=== PATIENT | male | born 1970 | race Caucasian/White ===

== ENCOUNTER → 2020-09-03 08:52 | Outpatient (BNVA) | payer OTHER, SELFPAY | PROVIDERS: Family Provider Family Medicine; PCP Family Medicine; Visit Provider Internal Medicine Cardiovascular Disease | DX: Z01.818 Encounter for other preprocedural examination (principal); R07.9 Chest pain, unspecified; R94.39 Abnormal result of other cardiovascular function study; Z20.822 Contact with and (suspected) exposure to COVID-19 | CPT/HCPCS: 80048; 85025; 85610; 87635 ==

== ENCOUNTER 2020-09-27 05:51 | Day surgery (SDC) | payer OTHER, SELFPAY ==
--- NOTE | 2020-09-27 06:00 | XACV_ITS ---
Ht: 170 cm Wt: 92 kg BSA: 2.12 m2 Gender: Male : 1970 Any Known Allergies: No known allergies Exam Priority: Routine Procedure(s): Procedure Description: Diagnostic procedure Procedure Description: Left Heart Catheterization Procedure Description: Left ventriculography Procedure Description: Coronary Angiography Diagnostic Cath Status: Elective Diagnostic Findings * Left Main has no disease. * Circumflex has no disease. * Proximal Left Anterior Descending: luminal irregularities 20% stenosis, FABIO: 3 flow. * Mid Right Coronary Artery: luminal irregularities 20% stenosis, FABIO: 3 flow. * Posterior Descending Right: luminal irregularities 20% stenosis, FABIO: 3 flow. * Coronary angiography shows right dominance. Conclusions 1. There is luminal irregularities coronary artery disease with two vessel disease. 2. Hyperdynamic left ventricular systolic function. Ejection fraction of 75%. 3. Indication: Worsening of angina despite of optimization of medicine. Recommendations * Continue current medical management and risk factor modification. Diagnostic RX Recommendation: medical therapy and/or counseling Ventriculography Ejection Fraction: 75.0 % Pressures Phase:Rest AO : 229 / 128 ( 106 ) @ 8:57:00 AM 110 / 85 ( 98 ) @ 8:58:00 AM 126 / 74 ( 99 ) @ 9:12:00 AM 128 / 73 ( 99 ) @ 9:12:00 AM LV : 155 / 1 / 22 @ 9:11:00 AM 250 / 154 / 34 @ 9:12:00 AM 134 / -7 / 17 @ 9:12:00 AM Valves Phase:DefaultPhase AV : 6.0 @ 10:19:01 AM AV Mean Gradient: 8.0 @ 10:19:01 AM Clinical Evaluation EBL: 5mL-10mL Procedural Details Procedure Consent Obtained. Current Diagnosis : Chest Pain. Pre-Procedure Time Out. Identified patient by full name and date of as verbalized by the patient/guarantor. Does the consent match the physician's order: Yes. Accurate & Complete Informed Consent: Yes. Inpatient/Outpatient History & Physical on Chart: Yes. If H&P is completed, is and addenduem needed: No; If yes, is the addendum complete: N/A. Visualize and Verify Site with Patient/Guarantor: N/A. Relevant Radiology Images available: Yes. The risks, benefits, and alternatives of sedation and/or procedure were discussed by physician. The patient agrees to continue. Procedure started. [facility] Clinical Fraility Score: 3: Managing Well. 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 Chest Pain Symptom Assessment: Typical Angina Symptoms. Correct patient, site and procedure confirmed by cath team. Current diagnosis: Chest Pain. PERRLA. 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 Lungs clear x 5 lobes. IV Site on Arrival: 20 gauge in the left anticubital. IV Fluids: 0.9% NaCl at KVO. 0 mL infused prior to bottle labeler. Pre Procedural Pulses: bilateral dorsalis pedis was 2+. Pre Procedural Pulses: bilateral posterior tibial was 2+. Pre Procedural Pulses: right radial was 2+. Oxygen started at 2liters/min via nasal canula. right groin was prepped with chloroprep then draped in the usual sterile fashion. right radial was prepped with chloroprep then draped in the usual sterile fashion. Physician notified. Baseline sample Acquired. HR: 56 BPM. Physician arrived. Physician scrubbed in. Immediate Pre-Procedure Time Out. Correct Patient: Yes; Correct Procedure: Yes; Correct Site: Yes; Correct Patient Position: Yes; Correct Supplies: Yes; Dried Flammable Prep: Yes; Blood Products Available: N/A;. Lidocaine 1% infiltrated to the right radial. Arterial access obtained. A 5 hong konger TIG catheter in over wire. Catheter removed over the exchange wire. A 5 hong konger Jc catheter in over wire. Multiple views taken of left coronary artery. Catheter redirected to the RCA. Catheter removed over the exchange wire. A 5 hong konger JR4 catheter in over wire. Multiple views taken of right coronary artery. Catheter removed over the exchange wire. A 5 hong konger Angled Pig catheter in over wire. EDP Sample taken: LV 155/1,22; HR: 61 BPM; SpO2: 99%. LV gram performed in VALENZUELA @ 10 mL/second for a total of 30 mL. EDP Sample taken: LV 250/154,34; HR: 65 BPM; SpO2: 98%. Pullback taken: LV 134/-8,17; AO 126/74(99); Mean: 8mmHg, Peak to Peak: 6mmHg, SEP: 20sec/min; HR: 64 BPM; SpO2: 98%. Catheter removed over the exchange wire. TR band placed. Hemostasis obtained. A TR Band was successful obtaining hemostatsis at the Right Radial artery insertion site. Vital chart was stopped. Post Procedure: Pulses reassessed and unchanged. No VTE prophylaxis required. Medication's Wasted: Lidocaine 1% = 14 mL. Medication's Wasted: Heparin = 1000 units. Medication's Wasted: Nitro = 49.7 mcg. Total IV fluids: 50 mL. Contrast type used: Visipaque 320 mgI/mL, 500 mL bottle. Complications: none. Estimated blood loss: 5mL-10mL. Procedure completed. Patient transferred by wheelchair to 1st floor. Access Site Site: Right Radial artery Sheath Size: 6 Fr Hemostasis Method: TR Band Hemostasis Success: Successful Procedure Medications Start: 9:31 AM Stop: 9:31 AM Medication: Versed Amount: 1 mg Route: I.V. Start: 9:31 AM Stop: 9:31 AM Medication: Fentanyl Amount: 50 mcg Route: I.V. Start: 9:38 AM Stop: 9:38 AM Medication: Versed Amount: 1 mg Route: I.V. Start: 9:46 AM Stop: 9:46 AM Medication: Nitrogylcerin Amount: 50 mcg Start: 9:47 AM Stop: 9:47 AM Medication: Nitrogylcerin Amount: 200 mcg Route: I.A. Start: 9:49 AM Stop: 9:49 AM Medication: Fentanyl Amount: 25 mcg Route: I.V. Start: 9:49 AM Stop: 9:49 AM Medication: Heparin Amount: 5000 units Route: I.V. Start: 9:58 AM Stop: 9:58 AM Medication: Fentanyl Amount: 25 mcg Route: I.V. I, the attending physician, have reviewed and verified all procedure medications. Yes, all medications given per verbal order History/Risk Factors Hypertension: Yes Dyslipidemia: No Peripheral Arterial Disease (PAD): No Myocardial Infarction (VT): No Obesity: No Renal Disease: No Tobacco Use: Never Prior Interventions PCI: No CABG: No Valve Surgery: No Report Signatures Finalized by Salvador Stein MD on 10/10/2020 07:44 PM
[2020-09-27 08:17] VITALS: BP 119/88; PULSE 59; RESP 16; TEMP 36.7; O2SAT 98; BMI 31.8
[2020-09-27] MEDS: diphenhydrAMINE 50 mg Capsule PO (08:17)
--- NOTE | 2020-09-27 09:19 | W.PM.OPSFHP ---
Same Day Surgery H&P Indication for Procedure/HPI DATE OF PROCEDURE: September 27, 2020 CHIEF COMPLAINT/INDICATIONFOR SURGICAL PROCEDURE: Chest pain/abnormal stress test PREOP DIAGNOSIS: Chest pain despite of optimization of meds PLANNED PROCEDRUE: Operation Date: 09/27/20 07:00 Proposed Procedures p left Cardiac Catheterization 24493 r07.89(Left) - Irving Hale M.D 50-year-old male past medical history significant for family history of heart problem hyperlipidemia hypertension for worsening of chest pain underwent treadmill nuclear stress test which was equivocal. Patient was observed since he continues to do worse had few more episodes Dr. Moore referred him for left heart cath. I have detailed discussion with the patient he is nervous and think that he is under pain or heart attack. He has episodes of off-and-on chest pressure with diaphoresis. Patient has been explained all risk benefit and alternative for the procedure. He understand the risk for stroke major minor bleed urgent emergent bypass surgery hematoma bruising infection and contrast-induced nephropathy leading to transient or permanent dialysis. He would like to proceed with it. He is a good candidate for DAPT. Medications/Allergies* Home Medications Medication Instructions Recorded Confirmed Type aspirin 81 mg tablet,delayed 81 mg PO DAILY 08/02/20 09/26/20 History release lisinopril 20 2 tab PO DAILY tab 08/02/20 09/26/20 History mg-hydrochlorothiazide 12.5 mg tablet nitroglycerin 0.4 mg sublingual 0.4 mg SUBLINGUAL Q5M PRN 08/02/20 09/26/20 History tablet omeprazole 40 mg capsule,delayed 40 mg PO DAILY 08/02/20 09/26/20 History release Allergies/Adverse Reactions Allergy/AdvReac Type Severity Reaction Status Date / Time No Known Allergies Allergy Unverified 08/02/20 09:00 Pertinent History/Comorbid Conditions* Medical History (Updated 08/02/20 @ 21:56 by Bernadette Moore MD) GERD (gastroesophageal reflux disease) HTN (hypertension) Surgical History (Updated 08/02/20 @ 09:15 by Bernadette Moore MD) S/P knee surgery Social History Smoking and tobacco status: never smoked Pertinent Exam Findings alert, oriented x 3, clear to auscultation bilaterally and operative site marked Conscious Sedation Assessment PATIENT ASSESSED PRIOR TO SEDATION, WITH NO CHANGE NOTED: Yes AIRWAY EVAL/ANESTHESIA PLAN: ASA II, Risks, benefits & alternatives of sedation and/or procedure discussed and Patient agrees to continue as planned Recommendations Surgery/Procedure today Coding Level of Care Code Acute Bilingual Account Manager for Maria Del Carmen Koch
[2020-09-27 10:31] VITALS: BP 144/87; PULSE 56; RESP 28; O2SAT 98
[2020-09-27 10:45] VITALS: BP 144/87; PULSE 68; RESP 12; O2SAT 98
[2020-09-27 11:00] VITALS: BP 123/82; PULSE 57; RESP 17; O2SAT 97
[2020-09-27 11:15] VITALS: BP 114/65; PULSE 64; RESP 17; TEMP 36.7; O2SAT 97
--- NOTE | 2020-09-27 11:29 | PC.NURSE ---
3 ml air removed from TR band.
[2020-09-27 11:30] VITALS: BP 121/65; PULSE 56; RESP 15; O2SAT 97
--- NOTE | 2020-09-27 12:00 | PC.NURSE ---
4 ml air taken out of TR band.
--- NOTE | 2020-09-27 12:48 | PC.NURSE ---
4 ml air removed from TR band.
--- NOTE | 2020-09-27 13:58 | PC.NURSE ---
TR band removed. no bleeding noted. Will continue to monitor
== END 2020-09-27 14:47 | disposition home or self-care (01) ==
LOC: CCL 05:52 → ICU 10:33
PROVIDERS: PCP Family Medicine; Visit Provider Internal Medicine Cardiovascular Disease
DX: I25.10 Atherosclerotic heart disease of native coronary artery without angina pectoris (principal); R07.89 Other chest pain; E78.5 Hyperlipidemia, unspecified; I10 Essential (primary) hypertension; Z82.49 Family history of ischemic heart disease and other diseases of the circulatory system; K21.9 Gastro-esophageal reflux disease without esophagitis
CPT/HCPCS: 36415; 93452; C1769; C1887; C1894; J1644; J2250; J3010; J3490; J7030; Q0163; Q9967

== ENCOUNTER 2020-09-28 07:38 | Outpatient (CLI) | payer OTHER, SELFPAY ==
--- NOTE | 2020-09-28 08:00 | USCV_ITS ---
Jimmie Rios Age: 50 Gender: M : 1970 Exam Date: 09/28/2020 07:54 Ordering Phys: Bernadette Moore MD ([email or web address]) Technologist: Carlotta Haney Exam Location: [facility] Indication: Chest pain BP: 135 / 77 HR: 56 Rhythm: Sinus Technical Quality: Good MEASUREMENTS (Male / Female) Normal Values 2D ECHO LV Diastolic Diameter PLAX 4.6 cm 4.2 - 5.9 / 3.9 - 5.3 cm LV Systolic Diameter PLAX 3.0 cm IVS Diastolic Thickness 0.7 cm 0.6 - 1.0 / 0.6 - 0.9 cm IVS Systolic Thickness 1.4 cm LVPW Diastolic Thickness 1.1 cm 0.6 - 1.0 / 0.6 - 0.9 cm LVPW Systolic Thickness 1.6 cm LVOT Diameter 2.1 cm LV Ejection Fraction 2D Teich 63.7 % LV Ejection Fraction MOD 2C 56.2 % LV Ejection Fraction 2C AL 56.2 % LA Diameter 3.6 cm LA Width 3.3 cm LA Height 5.1 cm RA Width 2.9 cm RA Height 4.4 cm Aorta at Sinotubular Diameter 2.9 cm M-MODE LV Diastolic Diameter MM 5.4 cm 4.2 - 5.9 / 3.9 - 5.3 cm LV Systolic Diameter MM 3.4 cm LV Ejection Fraction MM Teich 67.8 % IVS Diastolic Thickness MM 0.9 cm 0.6 - 1.0 / 0.6 - 0.9 cm IVS Systolic Thickness MM 1.4 cm LVPW Diastolic Thickness MM 0.9 cm 0.6 - 1.0 / 0.6 - 0.9 cm LVPW Systolic Thickness MM 1.4 cm Aortic Annulus Diameter 2.7 cm LA Ao Ratio MM 1.3 MV E Point Septal Separation 0.3 cm DOPPLER AV Peak Velocity 127.0 cm/s LVOT Peak Velocity 119.0 cm/s AV Area Cont Eq vti 2.8 cm squared AV Area Cont Eq pk 3.3 cm squared MV Peak Velocity 110.0 cm/s MV Area PHT 3.2 cm squared Mitral E to A Ratio 1.5 MV E' Velocity 60.0 cm/s Mitral E to MV E' Ratio 9.9 Mitral E to LV E' Lateral Ratio 8.8 Mitral E to LV E' Septal Ratio 11.3 TR Peak Velocity 73.3 cm/s TR Peak Gradient 2.1 mmHg TR Mean Velocity 46.4 cm/s TR Mean Gradient 1.1 mmHg TR Velocity Time Integral 13.4 cm Right Atrial Pressure 3.0 mmHg Pulmonary Artery Systolic Pressu 5.1 mmHg PV Peak Velocity 102.0 cm/s RV Acceleration Time 0.2 s RV Ejection Time 0.3 s RV AcT/ET 0.6 FINDINGS Left Ventricle Normal left ventricular size, systolic function and wall thickness, with no regional wall motion abnormalities. Left ventricular ejection fraction is estimated at 65-70 %. Normal diastolic function. Right Ventricle Normal right ventricular size and systolic function. RVSP could not be calculated due to incomplete tricuspid regurgitation velocity profile. Right Atrium Normal right atrial size. Left Atrium Normal left atrial size. Mitral Valve Structurally normal mitral valve. No mitral valve stenosis. No mitral valve regurgitation. Aortic Valve Structurally normal trileaflet aortic valve. No aortic valve stenosis. No aortic valve regurgitation. Tricuspid Valve Structurally normal tricuspid valve. No tricuspid valve stenosis. Trace tricuspid valve regurgitation. Pulmonic Valve Structurally normal pulmonic valve. Trace pulmonary valve regurgitation. Pericardium No pericardial effusion. Aorta Normal size aortic root and proximal ascending aorta. CONCLUSIONS 1. Normal left ventricular size, systolic function and wall thickness, with no regional wall motion abnormalities. Left ventricular ejection fraction is estimated at 65-70 %. Normal diastolic function. 2. Normal right ventricular size and systolic function. 3. No significant valvular abnormality. 4. No prior similar studies to compare. Bernadette Moore MD (Electronically Signed) Final Date: 30 September 2020 08:24 S
== END 2020-09-28 07:39 | disposition home or self-care (01) ==
LOC: US 07:39
PROVIDERS: PCP Family Medicine; Visit Provider Internal Medicine Cardiovascular Disease
DX: R07.9 Chest pain, unspecified (principal)
CPT/HCPCS: 93306

== ENCOUNTER → 2020-10-10 09:12 | Outpatient (BNVA) | payer OTHER, SELFPAY | PROVIDERS: PCP Family Medicine; Visit Provider Nurse Practitioner Family | DX: I10 Essential (primary) hypertension (principal); Z09 Encounter for follow-up examination after completed treatment for conditions other than malignant neoplasm | CPT/HCPCS: 80048 ==

== ENCOUNTER → 2020-12-21 09:53 | Outpatient (BNVA) | payer OTHER, SELFPAY | PROVIDERS: PCP Family Medicine; Visit Provider Urology | DX: N43.40 Spermatocele of epididymis, unspecified (principal) | CPT/HCPCS: 81003 ==

== ENCOUNTER → 2021-03-18 08:18 | Outpatient (BNVA) | payer OTHER, SELFPAY | PROVIDERS: PCP Family Medicine; Referring Provider Anesthesiology Pain Medicine; Visit Provider Orthopaedic Surgery | DX: M25.521 Pain in right elbow (principal) | CPT/HCPCS: 73080 ==

== ENCOUNTER 2021-03-21 09:30 | Outpatient (RCR) | payer OTHER, SELFPAY | END 2021-03-29 23:59 | disposition home or self-care (01) | LOC: SOT 09:30 | PROVIDERS: PCP Family Medicine; Referring Provider Orthopaedic Surgery; Visit Provider Orthopaedic Surgery | DX: M77.01 Medial epicondylitis, right elbow (principal) | CPT/HCPCS: 97032; 97110; 97140; 97165 ==

== ENCOUNTER 2021-04-19 10:48 | Outpatient (CLI) | payer OTHER, SELFPAY ==
[2021-04-19 10:56] VITALS: BP 134/93; PULSE 74; RESP 17; TEMP 36; O2SAT 97; BMI 32.8
[2021-04-19 11:09] VITALS: BP 125/82; PULSE 78; RESP 18; TEMP 34.7; O2SAT 98
[2021-04-19 11:44] VITALS: BP 131/79; PULSE 65; RESP 16; TEMP 34.7; O2SAT 99
== END 2021-04-19 12:46 | disposition home or self-care (01) ==
LOC: OPS 10:49
PROVIDERS: PCP Family Medicine; Visit Provider Clinical Nurse Specialist Adult Health
DX: U07.1 COVID-19 (principal)
CPT/HCPCS: 96365

== ENCOUNTER → 2021-11-06 11:07 | Outpatient (BNVA) | payer OTHER, SELFPAY | PROVIDERS: PCP Family Medicine; Visit Provider Family Medicine | DX: I10 Essential (primary) hypertension (principal); E78.00 Pure hypercholesterolemia, unspecified; R53.83 Other fatigue; G43.009 Migraine without aura, not intractable, without status migrainosus; G56.11 Other lesions of median nerve, right upper limb; N50.89 Other specified disorders of the male genital organs | CPT/HCPCS: 80053; 80061; 82040; 84270; 84403 ==

== ENCOUNTER 2021-12-22 05:28 | Emergency (ER) | payer OTHER, SELFPAY ==
[2021-12-22 05:29] VITALS: BP 150/91; PULSE 65; RESP 18; TEMP 36.8; O2SAT 99; BMI 29.0
[2021-12-22 05:40] VITALS: BP 138/85; PULSE 59; RESP 16; TEMP 36.7; O2SAT 98
--- NOTE | 2021-12-22 05:43 | XRR_ITS ---
PROCEDURE INFORMATION: Exam: XR Chest Exam date and time: 12/22/2021 5:47 AM Age: 51 years old Clinical indication: Chest wall pain; Additional info: Cp TECHNIQUE: Imaging protocol: Radiologic exam of the chest. Views: 1 view. COMPARISON: CT chest w con* [id number] 09/28/2018 10:33 AM FINDINGS: Lungs: No CHF/pulmonary edema. Visible lungs appear essentially clear. Pleural spaces: No visible pneumothorax. No definite pleural fluid. Heart/Mediastinum: Heart size is within normal limits. Bones/joints: Old fracture of the mid to distal right clavicle. XR/XR chest 1V portable [id number] IMPRESSION: 1. No definite CHF or pneumonia. 2. Other findings discussed above.
--- NOTE | 2021-12-22 05:43 | ECG_ITS ---
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
[2021-12-22 06:08] LABS: Basophils % 0.5 %; Eosinophils # 0.1 10^3/uL (0.0-0.8); Eosinophils % 2.4 %; Hemoglobin 14.2 g/dL (11.7-16.6); Lymphocytes # 1.9 10^3/uL (0.8-4.8); Lymphocytes % 32.3 %; Mean Corpuscular Volume 84.6 fl (80-94); Mean Platelet Volume 10.6 fL (7.4-10.4); Monocytes # 0.5 10^3/uL (0.2-0.9); Neutrophils % 55.6 %; Nucleated Red Blood Cells % 0 %; Platelet Count 242 10^3/cmm (130-400); Red Blood Count 5.08 10^6/uL (4.1-5.3); Red Cell Distribution Width 12.8 % (12.1-15.1); White Blood Count 5.8 10^3/uL (4.0-10.0)
--- NOTE | 2021-12-22 06:12 | W.ED.GENADLT ---
HPI - General Adult General: Chief complaint: General Medical Stated complaint: throat pain Time Seen by Provider: 12/22/21 06:01 Source: patient Mode of arrival: ambulatory Limitations: no limitations History of Present Illness: This patient makes his way to the emergency department today because of concerns about progressive neck discomfort with radiation to his chest and into his upper back. He states he is anxious about his symptoms. He states the symptoms began rather mildly approximately a year ago and over that period of time since initiation of symptoms he is noted more progressive symptoms. There initially seem to be located mostly in his neck and now are radiating into his chest left shoulder and left upper back. He has talked to his primary care doctor about the symptoms and a CT scan was ordered but its been a while to get that study done because of delay in insurance coverage. He states that he talk to his doctor on Thursday instead he was having more progressive symptoms as described above and was recommended that he should come to the emergency department. He finally made his way to the emergency department today. He states he was awakened approximately 3 AM with symptoms as described above. He relates that he does take omeprazole for gastroesophageal reflux and had an endoscopy approximately 3 years ago. He states he feels like he has a lump in his throat at times and clears his throat a lot. He thought he might have seasonal allergies but he is unsure of that now. He is taken some allergy medicine in the past but has not done so for several months. He is a non-smoker. He used to chew tobacco but quit that practice several years ago. He states that if he walks briskly he might get breathless a little bit but denies any overt chest pain. He has a history of hypertension. He does not drink alcohol. He is never had difficulty swallowing his food or liquids. He denies cough or fever. Denies weight loss. He does not vomit with the symptoms. Quality: burning and dull Associated symptoms: Reports chest pain; Deny dyspnea, headache(s), nausea, rash, palpitations, syncope or vomiting Review of Systems Const: Denies: fever(s) Eyes: Denies: change in vision ENMT: Reports: throat pain and hoarseness; Denies: nasal discharge, nasal congestion, post nasal drip or sinus pain Card: Reports: chest pain and dyspnea on exertion; Denies: palpitations, irregular heart rhythm, syncope or pre-syncope Resp: Denies: dyspnea, productive cough, non-productive cough, wheezing or stridor GI: Denies: abdominal pain, nausea, vomiting, hematemesis, diarrhea or change in bowel habits : Denies: flank pain, difficulty urinating, dysuria or urinary frequency Musc: Denies: extremity pain or extremity swelling Skin/Breast: Denies: rash or pruritus Neuro: Denies: headache(s), numbness in extremities, weakness in extremities, dizziness, vertigo or Slurred speech present Psych: Denies: depression or panic attacks Endo: Denies: polyuria or polydipsia PFSH ED PFSH: Medical History GERD (gastroesophageal reflux disease) High cholesterol HTN (hypertension) Hx of coronary angiogram Sperm granuloma Surgical History History of carpal tunnel release S/P knee surgery Family History Mother , at age 51 LUNG,LIVER AND BONE CANCER Cancer Father , AT AGE 72 LUNG CANCER Hypertension Cancer Social History Smoking and tobacco status: never smoked Alcohol intake: never Marital status: Current occupational status: employed Physical Exam Narrative: EXAM NARRATIVE: Patient is alert awake cooperative. He answers questions in a normal voice. Const: COMMON NORMALS: no acute distress, average body habitus and patient oriented x3 GENERAL APPEARANCE: cooperative and comfortable ORIENTATION/CONSCIOUSNESS: Yes awake HENMT: COMMON NORMALS: normocephalic, atraumatic, Normal nasal mucous membranes and turbinates present, moist oral mucous membranes and oropharynx normal HEAD & SCALP: normocephalic and atraumatic FACE & SINUS: normal facial exam NOSE: Normal nasal mucous membranes and turbinates present Eye: COMMON NORMALS: Equal, round and reactive pupils present, EOMs intact bilaterally, conjunctivae normal and no scleral icterus CONJUNCTIVA: Yes conjunctivae normal PUPIL: Yes Equal, round and reactive pupils present Neck/C-Spine: COMMON NORMALS: full ROM, no lymphadenopathy, supple and Thyroid normal THYROID: Thyroid normal CERVICAL SPINE: Yes cervical ROM normal, No Cervical spine tenderness, No Paracervical muscle tenderness and No Trapezius muscle tenderness Lymph: LYMPHATIC: no lymphadenopathy noted Chest: COMMONS NORMALS: normal inspection of the chest and normal palpation of entire chest wall Resp: COMMON NORMALS: normal respiratory effort, No use of accessory muscles and clear to auscultation bilaterally AUSCULTATION: clear to auscultation bilaterally Cardio: COMMON NORMALS: regular rate, regular rhythm, No murmurs present (Cardio) and Peripheral pulses 2+ throughout RATE: regular rate RHYTHM: regular rhythm PERIPHERAL PULSES: Peripheral pulses 2+ throughout GI: COMMON NORMALS: Normal to inspection, nondistended, normoactive bowel sounds present, Soft to palpation and No hepatosplenomegaly present AUSCULTATION: Yes Hyperactive bowel sounds present (Epigastric) PALPATION: Yes Soft to palpation, No Tenderness to palpation present (GI), No Guarding due to palpation present (GI) and Yes No hepatosplenomegaly present : COMMON NORMALS: Yes no CVA tenderness BLADDER/KIDNEY EXAM: Yes no CVA tenderness Back/Pelvis: COMMON NORMALS: no CVA tenderness, thoracic and lumbar spine normal to inspection, no thoracic nor lumbar tenderness and thoraco-lumbar ROM normal Extremity: COMMON NORMALS: normal to inspection, full ROM, capillary refill normal, no calf tenderness and no pedal edema Neuro: COMMON NORMALS: patient oriented x3, moves all extremities, no focal motor deficits, no sensory deficits noted and deep tendon reflexes 2+ bilaterally CRANIAL NERVES: Yes CN normal except as noted Psych: COMMON NORMALS: mental status grossly normal, cooperative, normal affect and speech normal SPEECH: Yes normal speech Skin: COMMON NORMALS: no rashes or lesions noted, no wounds, turgor normal and no jaundice GENERAL SKIN EXAM: no rashes or lesions noted and turgor normal Course Vital Signs: Vital signs: Vital Signs Temperature 98.0 F 12/22/21 05:40 Pulse Rate 59 L 12/22/21 05:40 Respiratory Rate 16 12/22/21 05:40 Blood Pressure 138/85 12/22/21 05:40 Pulse Oximetry 98 12/22/21 05:40 Oxygen Delivery Me thod 12/22/21 05:40 [facility] - General Adult Medical Decision Making Gentleman with chronic and progressive symptoms of throat discomfort that is now progressed and there is some chest and neck and shoulder discomfort. We will do due diligence and ensure there are no active ACS etc. at this time given his awakening at 3 AM with symptoms and proceed with advanced imaging to further risk stratify at this time. CT scan head and neck were unrevealing for anything significant pathology at this time. EKG and troponin biomarkers unremarkable as well and reassuring given the duration of symptoms. Is also had an angiogram in the last year that showed very minimal coronary artery disease. He has certain symptoms may be related to acid reflux or even postnasal drainage given his work-up today. He is not currently on a nasal steroid and is not on a H2 cricket so we will make those additions to his therapy temporarily in anticipation of his primary care doctor continue work-up which may include ENT or GI referral. Patient's stable and comfortable with the plan of care with return precautions discussed. Medical Records I reviewed the patient's medical records. Lab Data I reviewed the patient's lab results. : 12/22/21 06:00 12/22/21 06:00 Radiology Impressions Chest X-Ray 12/22/21 05:43 IMPRESSION: 1. No definite CHF or pneumonia. 2. Other findings discussed above. Chest CT 12/22/21 06:21 IMPRESSION: 1. No lung nodules or mediastinal lymphadenopathy. 2. Worsened moderate to severe coronary arterial atherosclerotic vascular calcifications, as noted above. Neck CT 12/22/21 06:21 IMPRESSION: No acute findings. Laboratory Results WBC 5.8 10^3/uL (4.0-10.0) 12/22/21 06:00 RBC 5.08 10^6/uL (4.1-5.3) 12/22/21 06:00 Hgb 14.2 g/dL (11.7-16.6) 12/22/21 06:00 Hct 43.0 % (42.0-52.0) 12/22/21 06:00 MCV 84.6 fl (80-94) 12/22/21 06:00 MCH 28.0 pg (28.0-34.0) 12/22/21 06:00 MCHC 33.0 g/dL (30.0-36.0) 12/22/21 06:00 RDW 12.8 % (12.1-15.1) 12/22/21 06:00 Plt Count 242 10^3/cmm (130-400) 12/22/21 06:00 MPV 10.6 fL (7.4-10.4) H 12/22/21 06:00 Neut % (Auto) 55.6 % 12/22/21 06:00 Lymph % (Auto) 32.3 % 12/22/21 06:00 Boundary % (Auto) 9.0 % 12/22/21 06:00 Eos % (Auto) 2.4 % 12/22/21 06:00 Baso % (Auto) 0.5 % 12/22/21 06:00 Neut # (Auto) 3.20 10^3/uL (1.8-7.7) 12/22/21 06:00 Lymph # (Auto) 1.9 10^3/uL (0.8-4.8) 12/22/21 06:00 Boundary # (Auto) 0.5 10^3/uL (0.2-0.9) 12/22/21 06:00 Eos # (Auto) 0.1 10^3/uL (0.0-0.8) 12/22/21 06:00 Baso # (Auto) 0.0 10^3/uL (0.0-0.1) 12/22/21 06:00 Nucleated RBC % (auto) 0 % 12/22/21 06:00 Nucleated RBCs # 0.0 /100WBC 12/22/21 06:00 Sodium 138 mmol/L (136-145) 12/22/21 06:00 Potassium 3.9 mmol/L (3.5-5.1) 12/22/21 06:00 Chloride 99 mmol/L (98-107) 12/22/21 06:00 Carbon Dioxide 27 mmol/L (22-29) 12/22/21 06:00 Anion Gap 15.9 (5-19) 12/22/21 06:00 BUN 13 mg/dL (6-20) 12/22/21 06:00 Creatinine 0.8 mg/dL (0.7-1.2) 12/22/21 06:00 GFR Calculation 101.1 mL/min (90-130) 12/22/21 06:00 Glucose 114 mg/dL (65-115) 12/22/21 06:00 Calculated Osmolality 287 mOsm/kg (285-295) 12/22/21 06:00 Calcium 9.2 mg/dL (8.5-10.5) 12/22/21 06:00 Total Bilirubin 0.3 mg/dL (0.15-1.2) 12/22/21 06:00 AST 18 U/L (0-40) 12/22/21 06:00 ALT 20 U/L (0-41) 12/22/21 06:00 Alkaline Phosphatase 46 U/L (40-130) 12/22/21 06:00 Troponin T Baseline 6 ng/L (0-15) 12/22/21 06:00 Total Protein 6.8 g/dL (6.6-8.7) 12/22/21 06:00 Albumin 4.4 g/dL (3.5-5.2) 12/22/21 06:00 Globulin 2.4 g/dL (1.3-4.6) 12/22/21 06:00 Lipase 31 U/L (13-60) 12/22/21 06:00 EKG Data EKG 1: I personally reviewed and interpreted this EKG as follows: Interpretation: Resting EKG reveals a ventricular rate of 56 bpm consistent with sinus bradycardia. Normal intervals, normal axis, normal QTc interval. No acute ST-T wave changes noted at this time. Computer generated interpretation: Chest X-Ray 12/22/21 05:43 IMPRESSION: 1. No definite CHF or pneumonia. 2. Other findings discussed above. Chest CT 12/22/21 06:21 IMPRESSION: 1. No lung nodules or mediastinal lymphadenopathy. 2. Worsened moderate to severe coronary arterial atherosclerotic vascular calcifications, as noted above. Neck CT 12/22/21 06:21 IMPRESSION: No acute findings. EKG 2: I personally reviewed and interpreted this EKG as follows: Interpretation: Second EKG this visit reveals a sinus bradycardia with a ventricular rate of 59 bpm. Normal intervals, normal axis. No acute ST-T wave changes noted. Computer generated interpretation: Chest X-Ray 12/22/21 05:43 IMPRESSION: 1. No definite CHF or pneumonia. 2. Other findings discussed above. Chest CT 12/22/21 06:21 IMPRESSION: 1. No lung nodules or mediastinal lymphadenopathy. 2. Worsened moderate to severe coronary arterial atherosclerotic vascular calcifications, as noted above. Neck CT 12/22/21 06:21 IMPRESSION: No acute findings. Discharge Plan Discharge Patient Disposition: Home Clinical Impression: Dysphagia, Odynophagia Condition: Stable Prescriptions: New Pepcid 40 mg tablet 40 mg PO BEDTIME Qty: 30 0RF Nasacort Allergy 55 mcg aerosol,spray 1 spray intranasal DAILY Qty: 16.9 0RF Rx Instructions: administer into each nostril No Action aspirin [Adult Low Dose Aspirin] 81 mg tablet,delayed release (DR/EC) 81 mg PO DAILY omeprazole 40 mg capsule,delayed release(DR/EC) 40 mg PO DAILY nitroglycerin [Nitrostat] 0.4 mg tablet, sublingual 0.4 mg sublingual Q5M PRN (Reason: Chest Pain) Rx Instructions: do not exceed 3 doses per episode lisinopril-hydrochlorothiazide 20-12.5 mg tablet 2 tab PO DAILY atorvastatin 10 mg tablet 10 mg PO DAILY naproxen sodium [Aleve] 220 mg tablet 220 mg PO BID PRN bupropion HCl 150 mg tablet extended release 24 hr 150 mg PO QAM trazodone PO ibuprofen 800 mg tablet 800 mg PO Q8H PRN (Reason: headache or dizziness onset) Qty: 20 0RF amoxicillin-pot clavulanate 875-125 mg tablet 1 tab PO BID Qty: 28 0RF Discharge Orders: Discharge ED (Routine); Ordered 12/22/21 Ordered By: Romario Stephens Referrals: Taran Hunter DO [Primary Care Provider] - 4-7 days (continuation of work up-see ED note) Discharge Diet: Usual diet Discharge Activity: Resume usual activity Patient Instructions: Opioid Safety, Pain Management Activity Restrictions/Additional Instructions: As we discussed while you were in the emergency department today. No evidence of serious etiology to your symptoms was found with CT scanning other work-up however additional evaluation is important to establish a firm diagnosis. Call your primary care doctor this coming week to discuss additional work-up. We have provided prescriptions for some medications to attempt to treat your symptoms while your work-up is ongoing. If you have any additional, worsening or other concerning symptoms return to the emergency department at any time otherwise follow-up with your regular doctor. Coding Level of Care Code ED [facility] Specialist for [facility] Del [facility] Koch Exam Comprehensive
[2021-12-22] MEDS: lidocaine 2% viscous 15 ML, aluminum-mag hydrox-simethicon 30 ML, sucralfate oral liq 1 GM PO (06:16)
--- NOTE | 2021-12-22 06:21 | CTR_ITS ---
PROCEDURE INFORMATION: Exam: CT Neck With Contrast Exam date and time: 12/22/2021 6:50 AM Age: 51 years old Clinical indication: Other: Feels like a lump in throat; Additional info: Neck, chest pain TECHNIQUE: Imaging protocol: Computed tomography of the neck with contrast. Radiation optimization: All CT scans at this facility use at least one of these dose optimization techniques: automated exposure control; mA and/or kV adjustment per patient size (includes targeted exams where dose is matched to clinical indication); or iterative reconstruction. Contrast material: OMNI 350; Contrast volume: 50 ml; Contrast route: INTRAVENOUS (IV); COMPARISON: CT chest w con* [id number] 12/22/2021 6:45 AM RADIATION DOSE METRICS: Total DLP (mGy-cm): 296.95 FINDINGS: Paranasal sinuses: Visualized paranasal sinuses appear unremarkable. Pharynx: No significant tonsillar enlargement. Unremarkable. Larynx: Normal epiglottis. Prevertebral and retropharyngeal spaces: Unremarkable. Salivary glands: Glands are normal in size. Thyroid: Normal. No enlarged or calcified nodules. Lymph nodes: No neck lymphadenopathy. Trachea: Visualized trachea is unremarkable. Lungs: Normal as visualized. Bones/joints: No acute abnormalities seen. Multiple missing teeth are seen. Multiple radiopaque dental restorations are seen. Vasculature: No acute findings. Soft tissues: No significant soft tissue swelling. No fluid collections to suggest abscess. No radiopaque foreign body. CT/CT neck w con* [id number] IMPRESSION: No acute findings.
--- NOTE | 2021-12-22 06:21 | CTR_ITS ---
PROCEDURE INFORMATION: Exam: CT Chest With Contrast; Diagnostic Exam date and time: 12/22/2021 6:45 AM Age: 51 years old Clinical indication: Pain; Chest pressure; Additional info: Neck, chest pain TECHNIQUE: Imaging protocol: Diagnostic computed tomography of the chest with contrast. Radiation optimization: All CT scans at this facility use at least one of these dose optimization techniques: automated exposure control; mA and/or kV adjustment per patient size (includes targeted exams where dose is matched to clinical indication); or iterative reconstruction. Contrast material: OMNI 350; Contrast volume: 75 ml; Contrast route: INTRAVENOUS (IV); COMPARISON: CT chest w con* [id number] 09/28/2018 10:33 AM RADIATION DOSE METRICS: Total DLP (mGy-cm): 499.57 FINDINGS: Trachea: The trachea is midline. Lungs: There are no lung nodules, interstitial lung disease, or consolidation. Pleural spaces: No pneumothorax. No pleural effusion. Heart: The heart size is normal. No pericardial effusion. Worsened moderate to severe left anterior descending coronary arterial atherosclerotic vascular calcifications are seen. Worsened moderate circumflex and right coronary arterial atherosclerotic vascular calcifications are seen. Lymph nodes: No enlarged lymph nodes. Vasculature: Unremarkable. No aortic aneurysm. Bones/joints: No acute osseous abnormality seen. Soft tissues: Unremarkable. Other findings: Unchanged simple left kidney mid zone 2.2 x 1.8 cm cyst is seen. Mild fatty infiltration of the liver. CT/CT chest w con* [id number] IMPRESSION: 1. No lung nodules or mediastinal lymphadenopathy. 2. Worsened moderate to severe coronary arterial atherosclerotic vascular calcifications, as noted above.
[2021-12-22 06:41] LABS: Alanine Aminotransferase 20 U/L (0-41); Albumin Level 4.4 g/dL (3.5-5.2); Alkaline Phosphatase 46 U/L (40-130); Blood Urea Nitrogen 13 mg/dL (6-20); Calcium 9.2 mg/dL (8.5-10.5); Carbon Dioxide 27 mmol/L (22-29); Chloride 99 mmol/L (98-107); Globulin 2.4 g/dL (1.3-4.6); Glomerular Filtration Rate 101.1 mL/min (90-130); Glucose 114 mg/dL (65-115); Lipase 31 U/L (13-60); Osmolality Calculated 287 mOsm/kg (285-295); Sodium 138 mmol/L (136-145); Total Bilirubin 0.3 mg/dL (0.15-1.2); Total Protein 6.8 g/dL (6.6-8.7)
[2021-12-22 06:42] LABS: Troponin(5th) Baseline 6 ng/L (0-15)
[2021-12-22 06:57] LABS: Anion Gap 15.9 (5-19); Potassium 3.9 mmol/L (3.5-5.1)
[2021-12-22] MEDS: iohexol 350 mg/mL 100 mL Btl IV ×2 (06:57→06:58)
[2021-12-22 06:58] LABS: Aspartate Amino Transferase 18 U/L (0-40)
[2021-12-22 07:37] VITALS: BP 138/85; PULSE 60; RESP 14; O2SAT 98
--- NOTE | 2021-12-22 07:43 | ECG_ITS ---
[facility] Test Date: 2021-12-22 Pat Name: Jimmie Rios Department: Room: Gender: Male Family Caseworker: : 1970 Requested By: Rosa Nguyen Order Number: [id number] Reading MD: Measurements Intervals [place] Rate: 59 P: 28 [place]: 167 QRS: 30 QRSD: 89 T: 41 QT: 453 QTc: 452 Interpretive Statements SINUS BRADYCARDIA WITH SINUS ARRHYTHMIA Compared to ECG 12/22/2021 05:40:20 Prolonged QT interval no longer present [email or web address]
[2021-12-22 08:07] VITALS: BP 138/85; PULSE 60; RESP 14; O2SAT 98
[2021-12-22 08:10] LABS: Troponin 5 2HR Delta 0 ABS# (0-10)
== END 2021-12-22 08:08 | disposition home or self-care (01) ==
PROVIDERS: Emergency Medicine; Emergency Provider Emergency Medicine; PCP Family Medicine
DX: R13.10 Dysphagia, unspecified (principal); I10 Essential (primary) hypertension; E78.00 Pure hypercholesterolemia, unspecified; Z79.82 Long term (current) use of aspirin
CPT/HCPCS: 36415; 70491; 71045; 71260; 80053; 83690; 84484; 85025; 93005; 99285; Q9967

== ENCOUNTER 2022-02-23 08:16 | Emergency (ER) | payer OTHER, SELFPAY ==
[2022-02-23 08:36] VITALS: BP 158/104; PULSE 72; RESP 18; TEMP 36.7; O2SAT 98; BMI 29.0
[2022-02-23] MEDS: dexamethasone 10 mg/mL INJ IM (08:48)
[2022-02-23] MEDS: ketorolac 60 mg/2 mL INJ IM (08:48)
[2022-02-23] MEDS: orphenadrine 30 mg/mL Inj 2 mL 60 MG IM (08:48)
--- NOTE | 2022-02-23 08:57 | W.ED.NECK ---
HPI - Neck Pain/Injury General: Chief Complaint: Neck Pain/Injury Stated Complaint: neck is in pain Time Seen by Provider: 02/23/22 08:19 Source: patient Mode of arrival: ambulatory History of Present Illness: 51-year-old male presents emergency room complaining neck pain. He states it began when he hit his head on a door about 2 weeks ago he was seen in the emergency room CT of the head and neck were done there is no significant finding he states he still has neck pain since then he has a little bit of discomfort rating into his shoulders and the upper arms no weakness. No difficulty walking. No nausea or vomiting no loss of consciousness MD complaint: neck pain and neck injury Onset (ago): week(s) (2) Place: work Radiation: right shoulder, left shoulder, right upper extremity and left upper extremity Severity: moderate Quality: aching and spasming Duration: intermittent Relieving factors: none Exacerbating factors: none Context: direct blow Associated symptoms: Denies dysphagia, difficulty walking, dizziness, fevers/chills, headache(s), nausea, swollen glands, tingling or weakness Treatments prior to arrival: none Review of Systems Const: Denies: fever(s), chills, body aches, change in appetite, fatigue or malaise ENMT: Denies: throat pain, ear or mastoid pain, nasal discharge or nasal congestion Card: Denies: chest pain, edema, dyspnea on exertion or orthopnea Resp: Denies: dyspnea, productive cough or non-productive cough GI: Denies: abdominal pain, nausea, vomiting, hematemesis or dysphagia : Denies: flank pain, dysuria, urinary frequency or urinary urgency Musc: Reports: neck pain Skin/Breast: Denies: rash or pruritus Neuro: Denies: headache(s), difficulty walking or dizziness PFSH ED PFSH: Medical History GERD (gastroesophageal reflux disease) High cholesterol HTN (hypertension) Hx of coronary angiogram Sperm granuloma Surgical History History of carpal tunnel release S/P knee surgery Family History Mother , at age 51 LUNG,LIVER AND BONE CANCER Cancer Father , AT AGE 72 LUNG CANCER Hypertension Cancer Social History Smoking and tobacco status: never smoked Alcohol intake: never Marital status: Current occupational status: employed Physical Exam Const: COMMON NORMALS: no acute distress GENERAL APPEARANCE: cooperative and comfortable ORIENTATION/CONSCIOUSNESS: Yes awake, Yes oriented to person, Yes oriented to place and Yes oriented to time HENMT: COMMON NORMALS: normocephalic, atraumatic and hearing grossly normal bilaterally HEAD & SCALP: normocephalic and atraumatic Eye: COMMON NORMALS: Equal, round and reactive pupils present, EOMs intact bilaterally, conjunctivae normal and no scleral icterus CONJUNCTIVA: Yes conjunctivae normal PUPIL: Yes Equal, round and reactive pupils present Neck/C-Spine: COMMON NORMALS: full ROM, no lymphadenopathy, supple and no JVD Lymph: LYMPHATIC: no lymphadenopathy noted and no lymphedema noted Resp: COMMON NORMALS: normal respiratory effort, No retractions, No use of accessory muscles and clear to auscultation bilaterally AUSCULTATION: clear to auscultation bilaterally Cardio: COMMON NORMALS: no JVD, regular rate, regular rhythm and No murmurs present (Cardio) RATE: regular rate RHYTHM: regular rhythm GI: COMMON NORMALS: Soft to palpation and No hepatosplenomegaly present AUSCULTATION: Yes normoactive bowel sounds PALPATION: Yes Soft to palpation, No Tenderness to palpation present (GI), No Guarding due to palpation present (GI) and Yes No hepatosplenomegaly present Extremity: COMMON NORMALS: normal to inspection, capillary refill normal, no clubbing, cyanosis or edema, no calf tenderness and no pedal edema Neuro: SENSORIUM/ORIENTATION: Yes oriented to person, Yes oriented to place and Yes oriented to time Skin: COMMON NORMALS: no rashes or lesions noted GENERAL SKIN EXAM: no rashes or lesions noted Course Vital Signs: Vital signs: Vital Signs Temperature 98.0 F 02/23/22 08:36 Pulse Rate 72 02/23/22 08:36 Respiratory Rate 18 02/23/22 08:36 Blood Pressure 158/104 02/23/22 08:36 Pulse Oximetry 98 02/23/22 08:36 Oxygen Delivery Me thod 02/23/22 08:36 MDM - Neck Pain/Injury Medical Decision Making Suspect at some point patient will need an MRI of the neck if it does not begin to improve. We will discharge him home. Start him on tizanidine and Lyrica follow-up with his primary care doctor Medical Records I reviewed the patient's medical records. Lab Data I reviewed the patient's lab results. Discharge Plan Discharge Patient Disposition: Home Clinical Impression: Cervicalgia Condition: Stable Prescriptions: New tizanidine 4 mg tablet 4 mg PO Q6H PRN (Reason: muscle spasticity) Qty: 20 0RF Rx Instructions: do not exceed 3 doses per 24 hrs Lyrica 75 mg capsule 75 mg PO BID Qty: 60 0RF Discontinued naproxen sodium [Aleve] 220 mg tablet 220 mg PO BID PRN ibuprofen 800 mg tablet 800 mg PO Q8H PRN (Reason: headache or dizziness onset) Qty: 20 0RF No Action aspirin [Adult Low Dose Aspirin] 81 mg tablet,delayed release (DR/EC) 81 mg PO DAILY omeprazole 40 mg capsule,delayed release(DR/EC) 40 mg PO DAILY nitroglycerin [Nitrostat] 0.4 mg tablet, sublingual 0.4 mg sublingual Q5M PRN (Reason: Chest Pain) Rx Instructions: do not exceed 3 doses per episode atorvastatin 10 mg tablet 10 mg PO DAILY ondansetron 4 mg tablet,disintegrating 4 mg PO Q8H PRN (Reason: nausea and vomiting) Qty: 30 0RF bupropion HCl 150 mg tablet extended release 24 hr 150 mg PO QAM trazodone PO lisinopril-hydrochlorothiazide 20-12.5 mg tablet 2 tab PO DAILY Qty: 90 1RF Pepcid 40 mg tablet 40 mg PO BEDTIME Qty: 30 0RF Nasacort Allergy 55 mcg aerosol,spray 1 spray intranasal DAILY Qty: 16.9 0RF Rx Instructions: administer into each nostril Discharge Orders: Discharge ED (Routine); Ordered 02/23/22 Ordered By: Jimmie Hurd Referrals: Taran Hunter DO [Primary Care Provider] - Discharge Diet: Usual diet Discharge Activity: Limit activity as instructed Patient Instructions: Opioid Safety, Pain Management Activity Restrictions/Additional Instructions: You are seen today for neck pain and concussion. Neurologically your exam appears to be intact. I do agree with your primary care doctor you should have an MRI of your neck at some point in future. Stop the ibuprofen and Naprosyn use diclofenac start prednisone taper tomorrow in addition you can start Lyrica and tizanidine. Lyrica as scheduled twice daily tizanidine is as needed. Continue tramadol Dr. Ballard given urine follow-up with him in this coming week. Coding Level of Care Code ED Separator Inserter for [facility] Koch
== END 2022-02-23 09:16 | disposition home or self-care (01) ==
PROVIDERS: Emergency Provider Family Medicine; PCP Family Medicine
DX: M54.2 Cervicalgia (principal)
CPT/HCPCS: 96372; 99284; J1100; J1885; J2360

== ENCOUNTER → 2022-03-06 09:17 | Outpatient (BNVA) | payer OTHER, SELFPAY | PROVIDERS: PCP Family Medicine; Referring Provider Anesthesiology Pain Medicine; Visit Provider Physician Assistant | DX: M47.892 Other spondylosis, cervical region (principal) | CPT/HCPCS: 72050 ==

== ENCOUNTER 2022-03-14 07:11 | Outpatient (CLI) | payer OTHER, SELFPAY ==
--- NOTE | 2022-03-14 07:15 | MR_ITS ---
WS: [id number] MRI CERVICAL SPINE NONCONTRAST TECHNIQUE: Sagittal T1, T2 and STIR imaging. Axial T2, gradient, and fiesta imaging. CLINICAL INFORMATION: pain COMPARISON: None. FINDINGS: Straightening of the normal cervical lordosis. Cord signal is normal. No high-grade central canal birgit rowing. C2-C3: Mild facet arthropathy. Mild LEFT and no RIGHT foraminal narrowing. Spinal canal is patent. C3-C4: Mild disc osteophytic ridging. Mild LEFT and no RIGHT foraminal narrowing. Spinal canal is pat ent. Mild facet arthropathy. C4-C5: Mild disc osteophytic ridging. Moderate LEFT and mild RIGHT bony foraminal narrowing. Mild fac et arthropathy. Slight contact of the cervical cord. Spinal canal is patent. C5-C6: Mild disc bulging with osteophytic ridging. Moderate facet arthropathy. Mild LEFT greater than RIGHT bony foraminal narrowing. Moderate facet arthropathy worse in the LEFT. C6-C7: Mild disc osteophyte complex with endplate ridging. Moderate LEFT greater than RIGHT bony fora alexis narrowing. Moderate facet arthropathy. Spinal canal is patent. C7-T1: Disc osteophyte complex with endplate ridging. Mild bilateral bony foraminal narrowing. Mild f acet arthropathy. Spinal canal is patent. Visualized brain stem structures: Normal. Prevertebral soft tissues: Normal. MR/MR cervical spin wo con* [id number] IMPRESSION: 1. Straightening of the normal cervical lordosis. Cord signal is normal. No hi gh-grade central canal narrowing. 2. Mild to moderate bony foraminal narrowing LEFT C3-C4, LEFT C4-C5, LEFT C5-C 6 and bilateral C6-C7. 3. Mild to moderate facet arthropathy worse at C4-C5, C5-C6 worse in the LEFT, and C6-C7.
== END 2022-03-14 07:12 | disposition home or self-care (01) ==
PROVIDERS: PCP Family Medicine; Visit Provider Physician Assistant
DX: M54.2 Cervicalgia (principal); M47.812 Spondylosis without myelopathy or radiculopathy, cervical region
CPT/HCPCS: 72141

== ENCOUNTER 2022-04-14 21:25 | Emergency (ER) | payer OTHER, SELFPAY ==
[2022-04-14 21:39] VITALS: BP 145/88; PULSE 78; RESP 14; TEMP 37; O2SAT 99
[2022-04-14 22:01] VITALS: BP 138/86; PULSE 80; RESP 16; O2SAT 96
--- NOTE | 2022-04-14 22:23 | ED_ITS ---
HPI - Headache General: Chief Complaint: Headache Stated Complaint: Pain In Back of Neck and Head Time Seen by Provider: 04/14/22 21:57 History of Present Illness: Patient is a 51-year-old male comes to the ED with headache. Patient has been having on and off headaches that started back in January when at work he had a heavy object fall on his head causing him concussion and neck pain. Over the past couple days he had a flareup of bad headache and neck pain that he rates currently a 9 out of 10. Pain starts at the top of his neck and radiates up to the top of his head. He says any bright lights cause worsening headache. He endorses nausea but denies any episodes of emesis. Patient is set up to see neurologist this week. He was given a prescription of Lyrica and tizanidine after his last ED visit back on February 23 for same complaint and he states that that did help with headaches and neck pain. Denies any other neuro symptoms such as numbness tingling to 1 side of his body or any weakness to 1 side of his body or face. Associated symptoms: Deny chest pain, fever(s), nausea, rash or vomiting Review of Systems Const: Denies: fever(s), chills or fatigue Eyes: Reports: photophobia; Denies: change in vision or eye discomfort ENMT: Denies: throat pain, odynophagia, nasal discharge or nasal congestion Card: Denies: chest pain, palpitations, edema, swelling of feet/ankles, dyspnea on exertion or orthopnea Resp: Denies: dyspnea, productive cough or non-productive cough GI: Denies: abdominal pain, nausea, vomiting, diarrhea, constipation or hematochezia : Denies: flank pain, difficulty urinating, dysuria or hematuria Musc: Reports: neck pain; Denies: back pain or extremity swelling Skin/Breast: Denies: rash or new lesions Neuro: Reports: headache(s); Denies: numbness in extremities or weakness in extremities [facility] ED PFSH: Medical History GERD (gastroesophageal reflux disease) High cholesterol HTN (hypertension) Hx of coronary angiogram Sperm granuloma Surgical History History of carpal tunnel release S/P knee surgery Family History Mother , at age 51 LUNG,LIVER AND BONE CANCER Cancer Father , AT AGE 72 LUNG CANCER Hypertension Cancer Social History Smoking and tobacco status: never smoked Alcohol intake: never Marital status: Current occupational status: employed Physical Exam Const: COMMON NORMALS: patient oriented x3 and alert GENERAL APPEARANCE: cooperative and comfortable HENMT: COMMON NORMALS: normocephalic HEAD & SCALP: normocephalic MOUTH: Normal oral and palatal mucosa present THROAT: posterior oropharynx normal and uvula midline Eye: COMMON NORMALS: Equal, round and reactive pupils present and EOMs intact bilaterally GENERAL EYE: appearance normal, both eyes and all related structures PUPIL: Yes Equal, round and reactive pupils present Neck/C-Spine: COMMON NORMALS: supple GENERAL: Yes normal visual inspection Lymph: LYMPHATIC: no lymphadenopathy noted Resp: COMMON NORMALS: normal respiratory effort, No retractions, No use of accessory muscles and clear to auscultation bilaterally AUSCULTATION: clear t o auscultation bilaterally Cardio: COMMON NORMALS: regular rate, regular rhythm, S1 normal heart sound present, S2 normal heart sound present, No gallops present (Cardio), No clicks present (Cardio), No murmurs present (Cardio) and Peripheral pulses 2+ throughout RATE: regular rate RHYTHM: regular rhythm HEART SOUNDS: S1 normal heart sound present and S2 normal heart sound present PERIPHERAL PULSES: Peripheral pulses 2+ throughout GI: COMMON NORMALS: Normal to inspection, nondistended, normoactive bowel sounds present, Soft to palpation, non-tender and no masses PALPATION: Yes Soft to palpation : COMMON NORMALS: Yes no CVA tenderness BLADDER/KIDNEY EXAM: Yes no CVA tenderness Back/Pelvis: COMMON NORMALS: no CVA tenderness Extremity: GENERAL: Yes normal exam except as noted Neuro: COMMON NORMALS: patient oriented x3, CN's II-XII intact bilaterally, moves all extremities, no focal motor deficits and no sensory deficits noted SENSORIUM/ORIENTATION: Yes alert SENSORY EXAM: Yes extremities (intact) MOTOR EXAM: 5/5 motor strength present throughout Skin: COMMON NORMALS: no rashes or lesions noted GENERAL SKIN EXAM: no rashes or lesions noted and dry skin Course Vital Signs: Vital signs: Vital Signs Temperature 98.6 F 04/14/22 21:39 Pulse Rate 82 04/14/22 23:10 Respiratory Rate 16 04/14/22 22:01 Blood Pressure 138/86 04/14/22 22:01 Pulse Oximetry 99 04/14/22 23:10 Oxygen Delivery Me thod 04/14/22 22:01 MDM - Headache Medical Decision Making Patient is a 51-year-old male comes to the ED with headache. Patient has been having on and off headaches that started back in January when at work he had a heavy object fall on his head causing him concussion and neck pain. Over the past couple days he had a flareup of bad headache and neck pain that he rates currently a 9 out of 10. Pain starts at the top of his neck and radiates up to the top of his head. He says any bright lights cause worsening headache. He endorses nausea but denies any episodes of emesis. Patient is set up to see neurologist this week. Vitals are stable. Neuro exam shows no deficits. Rest of exam is benign. Patient was given IV migraine cocktail of Toradol, Decadron, Benadryl and Reglan. He states his symptoms improved greatly. Patient diagnosed with headache and neck pain and was discharged home with a prescription to refill his tizanidine and Lyrica. Follow-up with neurologist at your appointment this week. Return ED precautions given. Patient understood an d agreed with plan. Discharge Plan Discharge Patient Disposition: Home Clinical Impression: Neck pain Headache Qualifiers: Headache type: unspecified Headache chronicity pattern: acute headache Intractability: not intractable Qualified Code(s): R51.9 - Headache, unspecified Condition: Stable Prescriptions: New tizanidine 4 mg capsule 4 mg PO Q8H PRN (Reason: muscle spasticity) Qty: 30 0RF No Action nitroglycerin [Nitrostat] 0.4 mg tablet, sublingual 0.4 mg sublingual Q5M PRN (Reason: Chest Pain) Rx Instructions: do not exceed 3 doses per episode atorvastatin 10 mg tablet 10 mg PO DAILY alprazolam 0.25 mg tablet 0.25 mg PO BID Label Comments: per psychiatry sertraline 50 mg tablet 50 mg PO DAILY Label Comments: per psychiatry bupropion HCl 300 mg tablet extended release 24 hr 300 mg PO DAILY Label Comments: per psychiatry omeprazole 40 mg capsule,delayed release(DR/EC) 40 mg PO DAILY Qty: 30 11RF lisinopril-hydrochlorothiazide 20-12.5 mg tablet 2 tab PO DAILY Qty: 30 11RF Nasacort Allergy 55 mcg aerosol,spray 1 spray intranasal DAILY Qty: 16.9 0RF Rx Instructions: administer into each nostril Discharge Orders: Discharge ED (Routine); Ordered 04/14/22 Ordered By: Thomas Wild Referrals: Taran Hunter, [Primary Care Provider] - Discharge Diet: Regular Discharge Activity: Increase activity as tolerated Patient Instructions: Headache - Migraine (Adult) Activity Restrictions/Additional Instructions: Follow-up with neurologist at your scheduled appointment this week. Take med ications as prescribed. Return to the ER or your medical provider if condition worsens. Please read and understand discharge instructions. Thank you for choosing [facility] for your healthcare needs today. Please realize this is an emergency room and that we are providing you with a medical screening exam and this may not be complete and all inclusive of all the testing and or work up that you may need to determine your ailment or severity of your illness. It is very important that you follow up as instructed or that you return to the Emergency Department should you have concerns or if your condition changes or worsens in any way. 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
[2022-04-14] MEDS: sodium chloride 0.9% 500 ML 999 ML IV (22:33)
[2022-04-14] MEDS: ketorolac 30 mg/mL INJ IVP (22:35)
[2022-04-14] MEDS: dexamethasone 10 mg/mL INJ IVP (22:36)
[2022-04-14] MEDS: metoclopramide 5 mg/mL SDV 2 mL 10 MG IVP (22:37)
[2022-04-14] MEDS: diphenhydrAMINE 50 mg/mL SDV 1mL 25 MG IVP (22:39)
[2022-04-14 23:10] VITALS: PULSE 82; O2SAT 99
== END 2022-04-14 23:11 | disposition home or self-care (01) ==
PROVIDERS: Emergency Provider Physician Assistant; PCP Family Medicine
DX: R51.9 Headache, unspecified (principal); M54.2 Cervicalgia; I10 Essential (primary) hypertension
CPT/HCPCS: 96361; 96374; 96375; 99284; J1100; J1200; J1885; J2765; J7040

== ENCOUNTER 2022-05-02 10:03 | Outpatient (CLI) | payer OTHER, SELFPAY ==
--- NOTE | 2022-05-02 09:30 | FL_ITS ---
WS: [id number] Modified barium swallow, 05/02/2022 Clinical Data: Throat pain for one to 2 years Comparison: None. Fluoroscopy time: 1min [id number] # of spot films: 0 Findings: The patient ingested the barium mixtures and showed normal oral propulsion and hypopharyngeal functio n. There is no aspiration or penetration. The patient ingested the barium tablet flowed normally into the hypopharynx and through the esophagus into the stomach. FL/FL barium swallow modifd [id number] Impression: Negative modified barium swallow.
== END 2022-05-02 10:04 | disposition home or self-care (01) ==
PROVIDERS: PCP Family Medicine; Visit Provider Otolaryngology
DX: R13.10 Dysphagia, unspecified (principal)
CPT/HCPCS: 74230

== ENCOUNTER 2022-05-05 06:00 | Outpatient (RCR) | payer OTHER, SELFPAY | END 2022-05-27 23:59 | disposition home or self-care (01) | LOC: SPT 06:00 | PROVIDERS: PCP Family Medicine; Visit Provider Specialist | DX: M54.2 Cervicalgia (principal) | CPT/HCPCS: 95992; 97110; 97162 ==

== ENCOUNTER 2022-05-07 10:54 | Outpatient (CLI) | payer OTHER, SELFPAY ==
--- NOTE | 2022-05-07 11:00 | MR_ITS ---
WS: [id number] MRI BRAIN WITHOUT CONTRAST HISTORY: F07.81 - Postconcussional syndrome COMPARISON: None available. TECHNIQUE: Diffusion imaging, multiplanar T1, T2 and FLAIR imaging obtained. No evidence for acute infarct or hemorrhage. Bauer-white matter differentiation is normal. There are a few small T2 and FLAIR signal hyperintensities within the white matter. These are both wi thin the posterior frontal lobe subcortical white matter. No prior infarct. No significant atrophy. Ventricles and extra-axial spaces are normal. No inferior displacement of cerebellar tonsils. The sella turcica and pituitary gland are unremarkabl e. Dural venous sinuses and pokagon of Garcia demonstrate no abnormality on this unenhanced studies. Paranasal sinuses: Mild mucoperiosteal thickening ethmoid air cells. No air-fluid levels. Mastoid air cells: Normal. Calvarium and scalp: Intact. MR/MR head wo con* [id number] IMPRESSION: 1. No acute infarct or hemorrhage. 2. Very minimal bilateral frontal lobe white matter small vessel disease. No p rior infarct.
== END 2022-05-07 10:55 | disposition home or self-care (01) ==
LOC: RAD 10:54
PROVIDERS: PCP Family Medicine; Visit Provider Specialist
DX: F07.81 Postconcussional syndrome (principal); G43.711 Chronic migraine without aura, intractable, with status migrainosus
CPT/HCPCS: 70551; 92611

== ENCOUNTER 2022-05-26 09:14 | Emergency (ER) | payer OTHER, SELFPAY ==
[2022-05-26 09:19] VITALS: BP 153/83; PULSE 51; RESP 14; TEMP 36.5; O2SAT 98
--- NOTE | 2022-05-26 09:24 | W.ED.HA ---
HPI - Headache General: Chief Complaint: Headache Stated Complaint: Headache x2 days Time Seen by Provider: 05/26/22 09:23 Source: patient Mode of arrival: ambulatory Limitations: no limitations History of Present Illness: Patient is a very nice 51-year-old male here in the emergency department for treatment of a severe headache. Patient has a history of postconcussive syndrome with chronic migraine following a head injury in January. He has been following up with Dr. Jimenes and has started on several different medications for treatment but he does not feel like many of them have made much of a difference. He states he has had to come to the ED for treatment of headaches before. He states typical migraine cocktails have worked in the past. He states his headache today feels similar to previous headaches. He is also underwent advanced imaging/MRI for evaluation of these headaches. Pertinent past history: migraines Onset (ago): day(s) Severity: similar to previous episodes Pain scale (0-10): 8 Exacerbating factors: light and noise Relieving factors: nothing Associated symptoms: Deny fever(s), malaise, nausea, rash or vomiting Review of Systems Const: Denies: fever(s), chills, body aches, fatigue or malaise Eyes: Denies: change in vision, blurry vision, floaters or seeing flashes GI: Denies: nausea or vomiting Musc: Denies: neck pain Skin/Breast: Denies: rash Neuro: Reports: headache(s); Denies: numbness in extremities, weakness in extremities, sensory changes, difficulty walking, dizziness, behavioral changes, Slurred speech present or seizure-like activity [facility] ED PFSH: Medical History GERD (gastroesophageal reflux disease) High cholesterol HTN (hypertension) Hx of coronary angiogram Sperm granuloma Surgical History History of carpal tunnel release S/P knee surgery Family History Mother , at age 51 LUNG,LIVER AND BONE CANCER Cancer Father Hypertension Cancer Other Stroke Social History Smoking and tobacco status: never smoked Alcohol intake: never Marital status: Current occupational status: employed Physical Exam Const: COMMON NORMALS: no acute distress, average body habitus, patient oriented x3, no limitations, healthy appearing, alert and well nourished GENERAL APPEARANCE: cooperative ORIENTATION/CONSCIOUSNESS: Yes awake, Yes oriented to person, Yes oriented to place and Yes oriented to time HENMT: COMMON NORMALS: normocephalic and atraumatic HEAD & SCALP: normal to inspection, normocephalic and atraumatic Eye: GENERAL EYE: appearance normal, both eyes and all related structures Neck/C-Spine: COMMON NORMALS: full ROM, no lymphadenopathy and no meningeal signs GENERAL: Yes normal visual inspection Neuro: CARLA COMA SCALE: document GCS findings [place] coma scale eye opening: Spontaneous Carla coma scale verbal response: Orientated [place] coma scale motor response: Obey commands Carla coma scale total score: 15 COMMON NORMALS: patient oriented x3, CN's II-XII intact bilaterally, moves all extremities, no focal motor deficits, no sensory deficits noted and gait normal SENSORIUM/ORIENTATION: Yes alert, Yes oriented to person, Yes oriented to place and Yes oriented to time MENINGEAL SIGNS: Yes no meningeal signs Course Vital Signs: Vital signs: Vital Signs Temperature 97.7 F 05/26/22 09:19 Pulse Rate 51 L 05/26/22 09:19 Respiratory Rate 14 05/26/22 09:19 Blood Pressure 153/83 05/26/22 09:19 Pulse Oximetry 97 05/26/22 10:36 Oxygen Delivery Me thod 05/26/22 10:36 MDM - Headache Medical Decision Making Patient has had about a 50% reduction in his headache pain after IV fluids/Toradol/Decadron/Reglan/Benadryl. Offered further treatment for further reduction but patient states he feels comfortable going home with where he is at. Recommend he continue following up with Dr. Jimenes as scheduled. Discharge Plan Discharge Patient Disposition: Home Clinical Impression: Chronic migraine without aura, intractable, with status migrainosus Condition: Stable Prescriptions: No Action sertraline 100 mg tablet 100 mg PO DAILY Qty: 30 1RF tamsulosin 0.4 mg capsule 0.4 mg PO DAILY Qty: 30 1RF propranolol 20 mg tablet 20 mg PO BID Qty: 60 2RF Emgality Pen 120 mg/mL pen injector 240 mg SUBCUT ONCE Qty: 1 0RF alprazolam 0.25 mg tablet 0.25 mg PO BID bupropion HCl 300 mg tablet extended release 24 hr 300 mg PO DAILY omeprazole 40 mg capsule,delayed release(DR/EC) 40 mg PO DAILY Qty: 30 11RF lisinopril-hydrochlorothiazide 20-12.5 mg tablet 2 tab PO DAILY Qty: 30 11RF venlafaxine 75 mg capsule,extended release 24hr 75 mg PO DAILY Discharge Orders: Discharge ED (Routine); Ordered 05/26/22 Ordered By: Rosalind Clinton Referrals: Taran Hunter DO [Primary Care Provider] - Coding Level of Care Code ED Outpatient Psychiatrist for Maria Del Carmen Koch
[2022-05-26] MEDS: metoclopramide 5 mg/mL SDV 2 mL 10 MG IVP (10:08)
[2022-05-26] MEDS: sodium chloride 0.9% 1,000 ML 999 ML IV (10:08)
[2022-05-26] MEDS: dexamethasone 10 mg/mL INJ 8 MG IV (10:08)
[2022-05-26] MEDS: diphenhydrAMINE 50 mg/mL SDV 1mL IVP (10:08)
[2022-05-26] MEDS: ketorolac 60 mg/2 mL INJ 30 MG IVP (10:09)
[2022-05-26 10:36] VITALS: O2SAT 97
== END 2022-05-26 11:31 | disposition home or self-care (01) ==
PROVIDERS: Emergency Provider Physician Assistant; PCP Family Medicine
DX: G43.011 Migraine without aura, intractable, with status migrainosus (principal); I10 Essential (primary) hypertension
CPT/HCPCS: 96361; 96374; 96375; 99284; J1100; J1200; J1885; J2765; J7030

== ENCOUNTER 2022-05-28 06:00 | Outpatient (RCR) | payer OTHER, SELFPAY | END 2022-06-17 23:59 | disposition home or self-care (01) | LOC: SPT 06:00 | PROVIDERS: PCP Family Medicine; Visit Provider Specialist | DX: M54.2 Cervicalgia (principal) | CPT/HCPCS: 97110; 97530 ==

== ENCOUNTER → 2023-02-24 14:20 | Outpatient (BNVA) | payer OTHER, SELFPAY | PROVIDERS: PCP Family Medicine; Visit Provider Family Medicine | DX: R93.0 Abnormal findings on diagnostic imaging of skull and head, not elsewhere classified (principal); E03.9 Hypothyroidism, unspecified; M26.649 Arthritis of unspecified temporomandibular joint; M19.90 Unspecified osteoarthritis, unspecified site; G43.711 Chronic migraine without aura, intractable, with status migrainosus; F07.81 Postconcussional syndrome | CPT/HCPCS: 82550; 85651; 86140 ==

== ENCOUNTER 2023-03-11 06:45 | Outpatient (CLI) | payer OTHER, SELFPAY ==
--- NOTE | 2023-03-11 07:00 | CT_ITS ---
WS: [id number] CT FACIAL BONES TECHNIQUE: Noncontrast facial bones with coronal and sagittal reformatted images. CLINICAL INFORMATION: R93.0 - Abnormal findings on diagnostic imaging of skull ... COMPARISON: None. DLP: 606.[address] scans at [facility] use at least one of these dose optimization techniques: automated e xposure control; mA and/or kV adjustment per patient size (includes targeted exams where dose is matc hed to clinical indication); or iterative reconstruction. FINDINGS: Mild S-shaped nasal septal deviation measuring 2 to 3 mm convex LEFT. Mild narrowing of the ostiomeat al units bilaterally with mucosal thickening which remain patent. Trace mucosal thickening in the maxillary sinuses. Frontal sinuses are well aerated. Mild mucosal thi ckening along the frontoethmoidal recesses RIGHT greater than LEFT which remain patent. Sphenoid sinu ses are patent. Sphenoid ostia are patent with mild narrowing of the RIGHT sphenoid ostia. Mastoid ai r cells are well aerated. Normal posterior nasopharynx. Normal parapharyngeal fat. Visualized parotid glands are normal. Normal submandibular glands. Partially visualized intracranial contents are normal. Bilateral temporalis muscles appear symmetric and within normal limits. Normal-appearing mandibular condyles. IMPRESSION: 1. Mild 2 to 3 mm nasal septal deviation. 2. Ostiomeatal units are patent with mild narrowing. Trace mucosal thickening in the maxillary sinus es. 3. Mastoid air cells are well aerated. 4. Normal posterior nasopharynx. 5. Symmetric temporalis muscles appear within normal limits.
== END 2023-03-11 06:46 | disposition home or self-care (01) ==
LOC: RAD 06:45
PROVIDERS: PCP Family Medicine; Visit Provider Family Medicine
DX: R93.0 Abnormal findings on diagnostic imaging of skull and head, not elsewhere classified (principal); J34.2 Deviated nasal septum
CPT/HCPCS: 70486

== ENCOUNTER → 2023-04-16 08:17 | Outpatient (BNVA) | payer OTHER, SELFPAY | PROVIDERS: PCP Family Medicine; Referring Provider Anesthesiology Pain Medicine; Visit Provider Student in an Organized Health Care Education/Training Program | DX: G56.03 Carpal tunnel syndrome, bilateral upper limbs (principal) | CPT/HCPCS: 73130 ==

== ENCOUNTER → 2023-04-28 13:32 | Outpatient (BNVA) | payer OTHER, SELFPAY | PROVIDERS: PCP Family Medicine; Visit Provider Family Medicine | DX: R10.9 Unspecified abdominal pain (principal) | CPT/HCPCS: 80053; 80061; 82150; 83690; 85025 ==

== ENCOUNTER 2023-05-01 06:16 | Outpatient (CLI) | payer OTHER, SELFPAY ==
--- NOTE | 2023-05-01 06:30 | US_ITS ---
WS: [id number] Complete ABDOMINAL ULTRASOUND HISTORY: R10.9 - Unspecified abdominal pain COMPARISON: 09/26/2018 Quality the examination is compromised by body habitus. Liver: 16.8 cm in length. Normal sized with at least moderate hepatic steatosis. The entire liver is not imaged well due to attenuation. No mass or bile duct dilatation. Portal Vein: Normal hepatopetal flow with monophasic waveform. Gallbladder: Normally distended gallbladder with no stones or wall thickening. CBD: 0.4 cm Pancreas: Poorly visualized. Right kidney: 10.4 cm x 7.1 x 6.3 cm. Cortex:1.1 cm. Normal size and echogenicity. No hydronephrosis or mass. Left kidney: 10.8 cm x 5.8 cm x 5.7 cm. Cortex: 1.1 cm. Normal size and echogenicity. No hydronephrosis or mass. There is a cystic mass associated with the L EFT kidney measuring 1.8 x 2.6 x 1.7 cm. Spleen: Normal. Aorta and IVC: Unremarkable abdominal aorta and IVC. Impression: 1. Technically difficult examination due to body habitus. 2. Normal size liver with moderate to severe hepatic steatosis. 3. Normal gallbladder. 4. No renal obstruction.
== END 2023-05-01 06:17 | disposition home or self-care (01) ==
LOC: RAD 06:16
PROVIDERS: PCP Family Medicine; Visit Provider Family Medicine
DX: R10.9 Unspecified abdominal pain (principal)
CPT/HCPCS: 76700; 80053; 80061; 82150; 83690; 85025

== ENCOUNTER 2023-06-15 10:15 | Outpatient (CLI) | payer OTHER, SELFPAY ==
--- NOTE | 2023-06-15 10:30 | CT_ITS ---
WS: [id number] CT LUMBAR SPINE, noncontrast. HISTORY: M54.16 - Radiculopathy, lumbar region, numbness into buttocks and legs. TECHNIQUE: Contiguous 2.0 mm axial imaging are performed. Sagittal and coronal reformats are submitte d and reviewed. All CT scans at [facility] use at least one of these dose optimization techni ques: automated exposure control; mA and/or kV adjustment per patient size (includes targeted exams w here dose is matched to clinical indication); or iterative reconstruction. IV contrast: None DLP: 880.47 mGy.cm COMPARISON: None available. Very slight straightening of the normal lumbar lordosis. No fractures. Moderate disc space narrowing with partial calcification at L5-S1. No pars defects. L1-2: Normal. L2-3: Normal. L3-4: Mild annular disc bulging with very slight ligamentum flavum and facet arthritis. Minimal LEFT foraminal narrowing. L4-5: Mild annular disc bulging with a shallow central disc protrusion contacting the ventral thecal sac. Mild bilateral facet arthritis. Mild central, bilateral subarticular recess and foraminal stenos is. L5-S1: Diffuse osteophytic ridging encroaching upon the ventral thecal sac and subarticular recesses and foramina. There is osteophyte contact on the L5 and S1 nerve roots bilaterally. Mild central sten osis. Moderate bilateral subarticular recess and moderate to severe foraminal stenosis. Visualized sacrum is negative. Mild atherosclerotic plaque in the iliac arteries and aorta. IMPRESSION: 1. Osteophytic ridging at L5-S1 causing moderate bilateral subarticular recess and moderate to sever e bilateral foraminal stenosis. Mild central stenosis. 2. Shallow central disc protrusion at L4-5. Mild facet arthritis. Mild central, bilateral subarticul ar recess and foraminal stenosis. 3. Very minimal LEFT foraminal narrowing at L3-4.
== END 2023-06-15 10:16 | disposition home or self-care (01) ==
PROVIDERS: PCP Family Medicine; Visit Provider Family Medicine
DX: M47.26 Other spondylosis with radiculopathy, lumbar region (principal); M25.78 Osteophyte, vertebrae; M48.07 Spinal stenosis, lumbosacral region; M51.26 Other intervertebral disc displacement, lumbar region
CPT/HCPCS: 72131

== ENCOUNTER 2023-06-17 06:15 | Day surgery (SDC) | payer OTHER, SELFPAY ==
[2023-06-17] VITALS (8 sets, daily range): BP systolic 127–164; BP diastolic 70–93; PULSE 55–70; RESP 14–18; TEMP 36.3–36.8; O2SAT 95–100; BMI 32.4
--- NOTE | 2023-06-17 06:47 | P.ANESASSM_ITS ---
Pre-Anesthetic Assessment Height/Weight: Height 1.7 m Weight 93.894 kg Temp Pulse Resp BP Pulse Ox O2 Del Method 97.7 F 65 18 145/87 98 Room Air 06/17/23 06:40 06/17/23 06:40 06/17/23 06:40 06/17/23 06:40 06/17/23 06:40 06/17/23 06:40 Operation Date: 06/17/23 07:50 Proposed Procedures p Carpal Tunnel Release(Left) - Martin Junito, DO Familial anesthetic complications: None Was Beta Jose Alberto taken within 24 hours: N/A Was Clonidine taken within 24 hours: N/A Last intake: Intake Last Liquid Date 06/16/23 Last Liquid Time 22:45 Last Solid Date 06/16/23 Last Solid Time 22:45 Social No alcohol and No tobacco Exam alert, oriented x 3, clear to auscultation bilaterally and regular rate & rhythm Airway Mallampati: Class II Dentition: other (crowns, a few missing) CV/HEM Hypertension able to achieve 4 MET w/ out chest pain, dyspnea, or syncope States he had angiogram and has minor blockages, medically treated Hepatic fatty liver Anesthetic Plan ASA status: 3 Anesthesia: MAC Risk of > 500 ml blood loss (7ml/kg in children): No Medications/Allergies Home Medications Medication Instructions Recorded Confirmed Last Taken Type bupropion HCl 300 mg 24 hr tablet, 300 mg PO DAILY 04/10/22 06/16/23 06/16/23 History extended release sertraline 100 mg tablet 100 mg PO DAILY #30 tabs 05/07/22 06/16/23 06/16/23 Rx alprazolam 0.25 mg tablet 0.25 mg PO BID PRN Anxiety 11/26/22 06/16/23 Unknown History tadalafil 5 mg tablet 5 mg PO DAILY BPH #30 tabs 12/19/22 06/16/23 06/16/23 Rx omeprazole 40 mg capsule,delayed 40 mg PO DAILY #30 caps 04/14/23 06/16/23 06/16/23 Rx release ibuprofen 800 mg tablet 800 mg PO Q8H PRN pain #30 tabs 05/16/23 06/16/23 06/15/23 Rx onabotulinumtoxinA 100 unit 155 unit SUBCUT ONCE #2 ea 06/01/23 06/16/2324 Rx solution for injection (Botox) lisinopril 20 2 tab PO DAILY bp #90 tabs 06/05/23 06/16/23 06/16/23 Rx mg-hydrochlorothiazide 12.5 mg tablet Allergies Allergy/AdvReac Type Severity Reaction Status Date / Time No Known Allergies Allergy Verified 06/04/23 11:37 [facility] Anesthesia Medical History Hx of coronary angiogram High cholesterol Sperm granuloma GERD (gastroesophageal reflux disease) HTN (hypertension) Surgical History History of carpal tunnel release S/P knee surgery Family History Mother , at age 51 LUNG,LIVER AND BONE CANCER Cancer Father Hypertension Cancer Other Stroke Social History Smoking and tobacco/nicotine status: never used tobacco/nicotine Second hand smoke exposure: No Alcohol intake: never Substance/Drug Use: current Other substance/drug use details: GUMMIES NIGHTLY Marital status: Current occupational status: employed Data Anesthesia Cardiac Studies: Echocardiogram Ultrasound 09/28/20
[2023-06-17] MEDS: scopolamine 1.5 Patch 1 PATCH TRANSDERMA (07:02)
[2023-06-17] MEDS: acetaminophen 1,000 MG/100 ML PIGGYBACK 400 MG IV (07:03)
[2023-06-17] MEDS: sodium chloride 0.9% 1,000 ML 30 ML IV (07:03)
[2023-06-17] MEDS: ketorolac 30 mg/mL INJ IVP (07:03)
--- NOTE | 2023-06-17 07:04 | W.PM.OPSFHP ---
Same Day Surgery H&P Indication for Procedure/HPI DATE OF PROCEDURE: June 17, 2023 CHIEF COMPLAINT/INDICATIONFOR SURGICAL PROCEDURE: Left carpal tunnel syndrome PREOP DIAGNOSIS: Left carpal tunnel syndrome PLANNED PROCEDURE: Operation Date: 06/17/23 07:50 Proposed Procedures p Carpal Tunnel Release(Left) - Martin Wild DO Medications/Allergies* Home Medications Medication Instructions Recorded Confirmed Type bupropion HCl 300 mg 24 hr tablet, 300 mg PO DAILY 04/10/22 06/16/23 History extended release alprazolam 0.25 mg tablet 0.25 mg PO BID PRN Anxiety 11/26/22 06/16/23 History Allergies/Adverse Reactions Allergy/AdvReac Type Severity Reaction Status Date / Time No Known Allergies Allergy Verified 06/04/23 11:37 Pertinent History/Comorbid Conditions* Medical History (Updated 06/01/23 @ 12:04 by Taran Hunter DO) Hx of coronary angiogram High cholesterol Sperm granuloma GERD (gastroesophageal reflux disease) HTN (hypertension) Surgical History (Updated 12/22/20 @ 07:57 by Isaak Hood MD) History of carpal tunnel release S/P knee surgery Family History (Updated 05/15/22 @ 08:14 by Nury Yung RN) Father Mother, at age 51 LUNG,LIVER AND BONE CANCER Cancer Mother Father Hypertension Father Stroke Social History Smoking and tobacco/nicotine status: never used tobacco/nicotine Second hand smoke exposure: No Alcohol intake: never Substance/Drug Use: current Other substance/drug use details: GUMMIES NIGHTLY Marital status: Current occupational status: employed Pertinent Exam Findings alert, oriented x 3, operative site marked and procedure specific exam findings Patient is positive Tinel's and median nerve compression test over the carpal tunnel of the left wrist. Recommendations Surgery/Procedure today Other Plans: Plan to proceed to the OR today with left carpal tunnel release. Coding Level of Care Code Acute Code for Maria Del Carmen Koch
[2023-06-17] MEDS: ceFAZolin 2,000 MG in sodium chloride 0.9% (plus) 50 ML 100 MG IV (07:46)
[2023-06-17] MEDS: ROPivacaine 0.5% SDV 30 mL 150 MG INJECTION (08:07)
[2023-06-17] MEDS: lidocaine-epi 1% 20 mL INJ INJECTION (08:07)
--- NOTE | 2023-06-17 08:20 | P.BOP_ITS ---
Date of Procedure: [June 17, 2023] Surgeon: [Dr. Junito DO] H[employer]head [employer] Operator(s): [Thomas Wild PA-C] Procedure(s) performed: [Left carpal tunnel release] Findings of the procedure(s): [Left carpal tunnel syndrome] Estimated blood loss: [1 mL] Specimen(s) removed: [N/A] Post-operative diagnosis: [Left carpal tunnel syndrome]
--- NOTE | 2023-06-17 08:22 | P.PCN_ITS ---
PACU note Narrative: Patient is a 52-year-old male that just underwent left carpal tunnel release. Patient transferred to PACU in stable condition. Pain is well controlled. Dressing on hand is dry and in place. Patient's fingers are warm and well- perfused. Patient can wiggle fingers. normal cap refill under 2 seconds. Patient has normal elbow range of motion. Unable to assess sensation due to residual localized anesthetic. Exam: awake Disposition: discharged
--- NOTE | 2023-06-17 09:05 | ANE.PACU2 ---
Inpatient post-anesthesia follow up: Airway intact: Yes Vital signs: Temperature 97.4 F Pulse Rate 55 Respiratory Rate 16 Blood Pressure 164/93 Pulse Oximetry 100 Oxygen Delivery Me thod Room Air Oxygen Flow Rate Fraction of Inspir ed Oxygen Hydration adequate: Yes Nausea and vomiting: No Pain level: 1 Mental status: Baseline
--- NOTE | 2023-06-17 10:08 | PM.OP ---
Operative Report Date of procedure: June 17, 2023 Surgeon: Martin Wild DO Procedure: Preoperative diagnosis: Left carpal tunnel syndrome Post-op diagnosis: Same Procedure done: 1.?Left carpal tunnel release Surgeon: Martin Wild DO Anesthesia: MAC (Local) Estimated blood?loss: [?1]mL Tourniquet time [ 7]minutes IV fluids: See anesthesia record Complications: None Findings: See operative report narrative Condition: stable Disposition: same day Brief History: Patient is a pleasant [?52 ]year-old [?M ]?with?left carpal tunnel syndrome.? Patient has been worked up in the outpatient setting findings and physical examination consistent with this.? Patient nerve?conduction studies consistent with carpal tunnel syndrome.? We detailed?out?patient's risk benefits complication alternatives with surgical and?nonsurgical treatment options. Through shared decision making, patient?agrees to proceed with surgical intervention of the?left carpal tunnel release .? Patient understands and agrees with current plan.? All questions answered.? Patient elects to proceed with surgical intervention with carpal tunnel release. Procedure: Patient seen and evaluated in the preoperative holding area.? Consent was reviewed and signed with patient.? Correct extremity was marked.? Patient was seen evaluated by the anesthesia department once cleared for surgery was brought back to the operative suite.? Patient was kept on [facility] in supine position all bony prominences were well-padded patient properly secured to the bed.??Left upper extremity was then placed onto an armboard.? A nonsterile tourniquet was applied to the?left upper arm.? Patient underwent anesthesia per the anesthesia department.? Patient's?left upper extremity was then prepped and draped in standard orthopedic fashion.? Final timeout performed.? Patient received appropriate preoperative antibiotics. Under sterile aseptic technique patient received?local anesthesia over the preplanned carpal tunnel incision site. Esmarch was used to exsanguinate the?left upper extremity and tourniquet was insufflated to 250 mmHg. A standard mini open?left carpal tunnel incision was made.? Starting distally at Coles's cardinal?line in?line with the fourth ray extending proximally distal to the wrist crease centered over the carpal tunnel.? Sharp scalpel incision was made through skin and subcutaneous tissue.? Self-retaining retractor was placed and the palmar fascia was identified.? This was then split?longitudinally and direct visualization of the transverse carpal?ligament was then made.? I then utilizing scalpel feathered through the transverse carpal?ligament until I entered the floor of the transverse carpal tunnel?ligament into the carpal tunnel.? Next I switched to dissection scissors and completed my release of the transverse carpal?ligament distally with care to protect the recurrent motor branch.? I completely released into the palmar fat and until no entrapment was noted distally.? Care was made to protect the superficial palmar arch during my distal dissection.? Next I then placed a [place] underneath the transverse carpal tunnel?ligament to protect the contents of the carpal tunnel and subsequently utilizing dissection scissors under?loupe magnification completely released the transverse carpal?ligament proximally into the median antebrachial fascia.? Care was made to protect the palmar cutaneous branch by keeping my scissors curved ulnarly.? Once completely released, I then placed my [place] and had appropriate decompression of the carpal tunnel proximally as well as distally.? I then inspected the contents of the carpal tunnel which showed an hourglass shape of the median nerve showing its compression.? No masses were noted.? Tendons appeared healthy.? Wound was then thoroughly irrigated.? Tourniquet deflated.? Hemostasis satisfactory with bipolar electrocautery.? I then closed the incision with interrupted nylon stitches.? Xeroform 4 x 4's and a bulky soft dressing was applied to the?left upper extremity.? Patient was then awakened from anesthesia and taken to PACU in stable condition.? Patient tolerated procedure without complications. Disposition: Patient taken to PACU in stable condition recovering well.? Dressing clean dry and intact.? Patient will receive appropriate discharge instructions as well as pain medication postoperatively.? Patient to follow-up with me in the office in 2 weeks.? They understand they may be weightbearing as tolerated to the?left hand.? Patient should keep incision clean dry and intact.? Patient understands if any questions or concerns may contact the office.
== END 2023-06-17 09:08 | disposition home or self-care (01) ==
PROVIDERS: PCP Family Medicine; Visit Provider Student in an Organized Health Care Education/Training Program
PROC: (CPT 64721; principal; 2023-06-17 07:45)
DX: G56.02 Carpal tunnel syndrome, left upper limb (principal); I10 Essential (primary) hypertension; K76.0 Fatty (change of) liver, not elsewhere classified; K21.9 Gastro-esophageal reflux disease without esophagitis
CPT/HCPCS: 64721; J0131; J0690; J1885; J2704; J2795; J7030

== ENCOUNTER → 2023-07-28 13:32 | Outpatient (BNVA) | payer OTHER, SELFPAY | PROVIDERS: PCP Family Medicine; Visit Provider Orthopaedic Surgery | DX: M54.2 Cervicalgia (principal) | CPT/HCPCS: 72050 ==

== ENCOUNTER 2023-09-04 07:02 | Outpatient (CLI) | payer OTHER, SELFPAY ==
--- NOTE | 2023-09-04 07:15 | MR_ITS ---
WS: [id number] MRI CERVICAL SPINE NONCONTRAST TECHNIQUE: Sagittal T1, T2 and STIR imaging. Axial T2, gradient, and fiesta imaging. CLINICAL INFORMATION: cervical pain COMPARISON: MRI 2021 FINDINGS: Straightening of the normal cervical lordosis. Mild disc bulging C4-5 and C5-6. Cord signal is normal . C2-C3: Mild facet arthropathy. Spinal canal and foramina are patent. C3-C4: Mild facet arthropathy. Mild LEFT foraminal narrowing. Spinal canal is patent. C4-C5: Mild disc bulging with slight contact of the cervical cord. Spinal canal is patent. Mild LEFT foraminal narrowing. Mild to moderate facet arthropathy. C5-C6: Disc osteophyte complex with endplate ridging. Moderate LEFT bony foraminal narrowing. Mild RI GHT foraminal narrowing. Spinal canal is patent. C6-C7: Disc osteophyte complex with endplate ridging. Moderate LEFT and mild RIGHT bony foraminal birgit rowing. Uncovertebral hypertrophy. Moderate facet arthropathy. Spinal canal is patent. C7-T1: Mild disc osteophytic ridging. Mild LEFT and no significant RIGHT foraminal narrowing. Spinal canal is patent. Visualized brain stem structures: Normal. Prevertebral soft tissues: Normal. MR/MR cervical spin wo con* [id number] IMPRESSION: 1. Disc bulging at C5-6 has progressed slightly. Otherwise no significant hanson ge compared to previous. 2. Moderate LEFT C5-C6 and C6-C7 bony foraminal narrowing. 3. Moderate facet arthropathy C4-C5 C5-C6 and C6-C7. 4. Otherwise mild foraminal narrowing described above. 5. Cord signal is normal.
== END 2023-09-04 07:03 | disposition home or self-care (01) ==
LOC: RAD 07:02
PROVIDERS: PCP Family Medicine; Visit Provider Orthopaedic Surgery
DX: M50.322 Other cervical disc degeneration at C5-C6 level (principal); M50.321 Other cervical disc degeneration at C4-C5 level; M48.02 Spinal stenosis, cervical region; M47.812 Spondylosis without myelopathy or radiculopathy, cervical region; M25.78 Osteophyte, vertebrae; M48.03 Spinal stenosis, cervicothoracic region
CPT/HCPCS: 72141

== ENCOUNTER → 2023-09-08 09:27 | Outpatient (BNVA) | payer OTHER, SELFPAY | PROVIDERS: PCP Family Medicine; Visit Provider Orthopaedic Surgery | DX: M47.22 Other spondylosis with radiculopathy, cervical region (principal); Z09 Encounter for follow-up examination after completed treatment for conditions other than malignant neoplasm; Z79.899 Other long term (current) drug therapy | CPT/HCPCS: 36415; 80053; 81003; 85025 ==

== ENCOUNTER 2023-10-05 05:50 | Day surgery (SDC) | payer OTHER, SELFPAY ==
[2023-10-05] VITALS (13 sets, daily range): BP systolic 113–187; BP diastolic 65–105; PULSE 65–92; RESP 11–20; TEMP 36.1–36.5; O2SAT 92–100; BMI 29.1
[2023-10-05] MEDS: sodium chloride 0.9% 1,000 ML 30 ML IV (06:23)
--- NOTE | 2023-10-05 06:47 | ANES.PREANE2 ---
Pre-Anesthetic Assessment Height/Weight: Height 1.7 m Weight 84.368 kg Temp Pulse Resp BP Pulse Ox O2 Del Method 97.7 F 65 18 187/105 98 Room Air 10/05/23 06:04 10/05/23 06:04 10/05/23 06:04 10/05/23 06:04 10/05/23 06:04 10/05/23 06:09 Preop Diagnosis: Cervical spondylosis with radiculopathy Operation Date: 10/05/23 07:00 Proposed Procedures p Anterior Cervical Discectomy & Fusion ACDF w/ Anterior Interbody Fusion w/ Cage w/ Instrumentation w/ Allograft w/ Navigation(Not Applicable) - Tl Flowers, DO Familial anesthetic complications: None Was Beta Jose Alberto taken within 24 hours: N/A Was Clonidine taken within 24 hours: N/A Last intake: Intake Last Liquid Date 10/04/23 Last Liquid Time 20:30 Last Solid Date 10/04/23 Last Solid Time 18:00 Social No alcohol and No tobacco Exam alert, oriented x 3, clear to auscultation bilaterally and regular rate & rhythm Airway Mallampati: Class II Dentition: other (crowns) Pulmonary Sleep Apnea CV/HEM Coronary Artery Disease (medically treated) Hepatic Fatty liver GI Gastroesophageal Reflux Disease [facility] [place] TMJ Anesthetic Plan ASA status: 3 Anesthesia: General Risk of > 500 ml blood loss (7ml/kg in children): No Other Pertinent Information Voice becomes raspy after talking for long duration, occassional L sided pain during swallowing, onset 2 weeks ago, denies trouble breathing, coughing spells, no masses or asymmetries detected on physical exam and palpation. Medications/Allergies Home Medications Medication Instructions Recorded Confirmed Last Taken Type bupropion HCl 300 mg 24 hr tablet, 300 mg PO DAILY 04/10/22 09/30/23 10/04/23 History extended release lisinopril 20 2 tab PO DAILY bp #90 tabs 06/05/23 09/30/23 10/04/23 Rx mg-hydrochlorothiazide 12.5 mg tablet omeprazole 40 mg capsule,delayed 40 mg PO DAILY #30 caps 07/20/23 09/30/23 10/04/23 Rx release onabotulinumtoxinA 100 unit 155 unit IM .q90 days #2 ea 08/31/23 09/30/23 09/09/23 Rx solution for injection (Botox) tadalafil 5 mg tablet (Cialis) 5 mg PO DAILY BPH 09/30/23 09/30/23 10/04/23 History Allergies Allergy/AdvReac Type Severity Reaction Status Date / Time No Known Allergies Allergy Verified 09/30/23 11:36 Current Medications Generic Name Dose Route Start Last Admin Trade Name Rupertoq PRN Reason Stop Dose Admin Sodium Chloride 1,000 mls @ 30 mls/hr 10/05/23 06:00 10/05/23 06:23 Sodium Chloride 0.9% IV 10/06/23 05:59 30 mls/hr .Q24H ROBERT Administration PFSH Anesthesia Medical History Hx of coronary angiogram High cholesterol Sperm granuloma GERD (gastroesophageal reflux disease) HTN (hypertension) Surgical History History of carpal tunnel release S/P knee surgery Family History Mother , at age 51 LUNG,LIVER AND BONE CANCER Cancer Father Hypertension Cancer Other Stroke Social History Smoking and tobacco/nicotine status: never used tobacco/nicotine Second hand smoke exposure: No Alcohol intake: never Substance/Drug Use: current Other substance/drug use details: GUMMIES NIGHTLY Marital status: Current occupational status: employed Data Anesthesia Cardiac Studies: Echocardiogram Ultrasound 09/28/20
--- NOTE | 2023-10-05 06:55 | W.PM.OPSUD ---
Surgery/Procedure H&P Update DATE OF PROCEDURE: October 05, 2023 DATE H&P PERFORMED: 09/25/23 H&P UPDATE INFORMATION: I have reviewed H&P completed within last 30 days, I have examined patient prior to procedure and No changes to prior documentation PREOP DIAGNOSIS: Cervical spondylosis with radiculopathy PLANNED PROCEDURE: Operation Date: 10/05/23 07:00 Proposed Procedures p Anterior Cervical Discectomy & Fusion ACDF w/ Anterior Interbody Fusion w/ Cage w/ Instrumentation w/ Allograft w/ Navigation(Not Applicable) - Tl Flowers DO
[2023-10-05] MEDS: ceFAZolin 2,000 MG in sodium chloride 0.9% (plus) 50 ML 100 MG IV (07:00)
[2023-10-05] MEDS: lidocaine-epi 1% 20 mL INJ 10 ML INJECTION (07:57)
--- NOTE | 2023-10-05 08:56 | PM.OP ---
Operative Report Date of procedure: October 05, 2023 Pre-op diagnosis: Cervical spondylosis with radiculopathy Post-op diagnosis: same Procedure done: 1. Anterior diskectomy C5/6 2. Anterior discectomy C6/7 3. Insertion of cage C5/6 4. Insertion of Cage C6/7 5. Instrumentation with anterior plate from C5-C7 6. Use of allograft Surgeon: Tl Flowers DO Estimated blood loss (mL): 25 Procedure: 1. Anterior diskectomy C5/6 2. Anterior discectomy C6/7 3. Insertion of cage C5/6 4. Insertion of Cage C6/7 5. Instrumentation with anterior plate from C5-C7 6. Use of allograft The patient was taken to the operating room, where he underwent general endotracheal anesthesia without complications. He was then positioned supine on the operating table, and all areas of impingement were well padded. The arms were carefully padded and tucked at his sides. A roll was placed between the shoulder blades.. An x-ray was done to determine the appropriate level for the skin incision. The entire neck was then sterilely prepped and draped in the usual fashion. Neuromonitoring was attached prior to prepping. A transverse skin incision was made and carried down to the platysma muscle. This was then split in line with its fibers. Blunt dissection was carried down medial to the carotid sheath and lateral to the trachea and esophagus until the anterior cervical spine was visualized. A needle was placed into a disc and an x-ray was done to determine its location. The longus colli muscles were then elevated bilaterally with the electrocautery unit. Self-retaining retractors were placed deep to the longus colli muscle. Attention was brought to the C5/6 level that was confirmed on x-ray. A caspar pin was placed into the C5 vertebrae and the C6 vertebrae. The disk space was then distracted. The microscope was then brought in. A radical anterior discectomies were performed at C5/6. This included complete removal of the anterior annulus, nucleus, and posterior annulus. The posterior longitudinal ligament was removed as were the posterior osteophytes. Foraminotomies were then accomplished bilaterally. This was done using a high speed barbara, kerrison rongeurs and curretes Once all of this was accomplished, the curved currette was used to check for any residual compression. The central canal was wide open as were the foramen. A high-speed bur was used to remove the cartilaginous endplates above and below the interspace. Bleeding cancellous bone was exposed. The disc space were measured and appropriate size cage were placed sterilely onto the field. Allograft graft was packed into the cages. The cage was then placed and there was good juxtaposition against the bleeding decorticated surfaces and good distraction of each interspace. Attention was brought to the next interspace. Attention was brought to the C6/7 level that was confirmed on x-ray. A caspar pin was placed into the C6 vertebrae and the C7 vertebrae. The disk space was then distracted. The microscope was then brought in. A radical anterior discectomies were performed at C6/7. This included complete removal of the anterior annulus, nucleus, and posterior annulus. The posterior longitudinal ligament was removed as were the posterior osteophytes. Foraminotomies were then accomplished bilaterally. This was done using a high speed barbara, kerrison rongeurs and curretes Once all of this was accomplished, the curved currette was used to check for any residual compression. The central canal was wide open as were the foramen. A high-speed bur was used to remove the cartilaginous endplates above and below the interspace. Bleeding cancellous bone was exposed. The disc space were measured and appropriate size cage were placed sterilely onto the field. Allograft graft was packed into the cages. The cage was then placed and there was good juxtaposition against the bleeding decorticated surfaces and good distraction of each interspace. The [place] pins were removed. Bone wax was used to prevent any bleeding from occurring at the pin sites. The appropriate size anterior cervical locking plate was chosen and bent into gentle lordosis. Two screws were then placed into each of the vertebral bodies at C5,C6 and C7. There was excellent purchase. A final x-ray was done confirming good position of the hardware and Cages. The locking screws were then applied, also with excellent purchase. Following a final copious irrigation, there was good hemostasis and no dural leaks. The carotid pulse was strong. The wounds were then closed in layers using 2-0 Vicryl suture for the platysma muscle, 2-0 Vicryl suture for the subcutaneous tissue, and 4-0 monocryl suture in a subcuticular skin closure. Glue was placed followed by application of a sterile dressing. The drain was hooked to bulb suction. A soft collar was applied. The patient was then carefully returned to the supine position on his hospital bed where he was reversed and extubated and taken to the recovery room having tolerated the procedure well.
--- NOTE | 2023-10-05 09:00 | PC.NURSE ---
0900 - oral airway out - [address]
[2023-10-05] MEDS: fentaNYL 50 mcg/mL INJ 2mL IVP (09:10)
--- NOTE | 2023-10-05 10:40 | ANE.PACU2 ---
Inpatient post-anesthesia follow up: Airway intact: Yes Vital signs: Temperature 97.0 F Pulse Rate 89 Respiratory Rate 16 Blood Pressure 147/101 Pulse Oximetry 95 Oxygen Delivery Me thod Room Air Oxygen Flow Rate 8 Fraction of Inspir ed Oxygen Hydration adequate: Yes Nausea and vomiting: No Pain level: 1 Mental status: Baseline
--- NOTE | 2023-10-05 13:26 | XR_ITS ---
WS: [id number] Cervical spine, C-arm fluoroscopy views, 10/05/2023 Clinical Data: OR PIC, ACDF Comparison: Cervical spine, 07/28/2023 Findings: Dr. Flowers performed an anterior cervical disc fusion C5-C7. XR/XR cervical spine 3V* [id number] Impression: Anterior cervical disc fusion.
== END 2023-10-05 10:40 | disposition home or self-care (01) ==
PROVIDERS: PCP Family Medicine; Visit Provider Orthopaedic Surgery
PROC: 0RB30ZZ Excision of Cervical Vertebral Disc, Open Approach (ICD-10-PCS; CPT 22551; principal; 2023-10-05 07:00)
DX: M47.22 Other spondylosis with radiculopathy, cervical region (principal); I25.10 Atherosclerotic heart disease of native coronary artery without angina pectoris; G47.30 Sleep apnea, unspecified; K21.9 Gastro-esophageal reflux disease without esophagitis; I10 Essential (primary) hypertension
CPT/HCPCS: 20930; 22551; 22552; 22845; 22853 ×2; 72040; 76000; C1713; C1763; C9359; J0330; J0690; J1100; J2250; J2405; J2704; J3010; J3490; J7030

== ENCOUNTER 2023-10-20 14:59 | Outpatient (CLI) | payer OTHER, SELFPAY ==
--- NOTE | 2023-10-20 15:15 | US_ITS ---
WS: [id number] TESTICULAR ULTRASOUND HISTORY: N50.89 - Other specified disorders of the male genital or... COMPARISON: 12/06/2020 TECHNIQUE: Real-time and color Doppler imaging or utilized to perform a testicular ultrasound. Right testicle: 3.6 cm x 2.7 cm x 2.1 cm. Normal size and echogenicity. No mass or torsion. Normal color Doppler is present throughout. Systolic and diastolic velocities are both present. No significant hydrocele. Right epididymis: Normal epididymis with no increased vascularity. Left testicle: 4.3 cm x 2.7 cm x 2.4 cm. Normal size and echogenicity. No mass or torsion. Normal color Doppler is present throughout. Systolic and diastolic velocities are both present. No significant hydrocele. Left epididymis: Normal epididymis with no increased vascularity. Mildly dilated LEFT varicocele. US/US scrotum [id number] IMPRESSION: 1. No testicular mass or torsion. 2. Left-sided varicocele. Varicocele was also present on the prior study from 12/06/2020 but has progressed.
== END 2023-10-20 15:00 | disposition home or self-care (01) ==
LOC: RAD 15:00
PROVIDERS: PCP Family Medicine; Visit Provider Family Medicine
DX: N50.89 Other specified disorders of the male genital organs (principal); I86.1 Scrotal varices
CPT/HCPCS: 76870; G0103

== ENCOUNTER → 2023-11-19 12:46 | Outpatient (BNVA) | payer OTHER, SELFPAY | PROVIDERS: PCP Family Medicine; Visit Provider Orthopaedic Surgery | DX: Z98.1 Arthrodesis status (principal) | CPT/HCPCS: 72040 ==

== ENCOUNTER 2023-12-14 10:23 | Outpatient (CLI) | payer OTHER, SELFPAY | END 2023-12-14 10:24 | disposition home or self-care (01) | PROVIDERS: PCP Family Medicine; Visit Provider Family Medicine | DX: G47.33 Obstructive sleep apnea (adult) (pediatric) (principal) | CPT/HCPCS: G0399 ==

== ENCOUNTER → 2024-01-05 14:34 | Outpatient (BNVA) | payer OTHER, SELFPAY | PROVIDERS: PCP Family Medicine; Visit Provider Orthopaedic Surgery | DX: Z98.1 Arthrodesis status (principal) | CPT/HCPCS: 72040 ==

== ENCOUNTER → 2024-02-23 07:32 | Outpatient (BNVA) | payer OTHER, SELFPAY | PROVIDERS: PCP Family Medicine; Visit Provider Podiatrist Foot & Ankle Surgery | DX: G90.521 Complex regional pain syndrome I of right lower limb; M79.2 Neuralgia and neuritis, unspecified | CPT/HCPCS: 73630; 99203 ==

== ENCOUNTER → 2024-03-29 06:58 | Outpatient (BNVA) | payer OTHER, SELFPAY | PROVIDERS: PCP Family Medicine; Visit Provider Podiatrist Foot & Ankle Surgery | DX: M79.2 Neuralgia and neuritis, unspecified; G90.521 Complex regional pain syndrome I of right lower limb | CPT/HCPCS: 99213 ==

== ENCOUNTER → 2024-04-01 15:28 | Outpatient (BNVA) | payer OTHER, SELFPAY | PROVIDERS: PCP Family Medicine; Visit Provider Specialist | DX: G43.711 Chronic migraine without aura, intractable, with status migrainosus (principal) | CPT/HCPCS: 64615 ==

== ENCOUNTER → 2024-04-05 10:43 | Outpatient (BNVA) | payer OTHER, SELFPAY | PROVIDERS: PCP Family Medicine; Visit Provider Orthopaedic Surgery | DX: Z98.1 Arthrodesis status (principal) | CPT/HCPCS: 72040 ==

== ENCOUNTER → 2024-04-28 07:59 | Outpatient (BNVA) | payer OTHER, SELFPAY | PROVIDERS: PCP Family Medicine; Visit Provider Podiatrist Foot & Ankle Surgery | DX: M79.2 Neuralgia and neuritis, unspecified; G90.521 Complex regional pain syndrome I of right lower limb | CPT/HCPCS: 99213 ==

== ENCOUNTER → 2024-05-09 09:03 | Outpatient (BNVA) | payer OTHER, SELFPAY | PROVIDERS: PCP Family Medicine; Visit Provider Family Medicine | DX: I10 Essential (primary) hypertension (principal); E55.9 Vitamin D deficiency, unspecified; F41.8 Other specified anxiety disorders; E78.00 Pure hypercholesterolemia, unspecified; K76.0 Fatty (change of) liver, not elsewhere classified; L30.9 Dermatitis, unspecified; E03.9 Hypothyroidism, unspecified | CPT/HCPCS: 80053; 80061; 82607; 82652; 84443; 85025 ==

== ENCOUNTER 2024-05-11 08:25 | Outpatient (CLI) | payer OTHER, SELFPAY ==
--- NOTE | 2024-05-11 08:45 | MR_ITS ---
WS: [id number] MRI CERVICAL SPINE NONCONTRAST HISTORY: neck pain COMPARISON: 09/04/2023 Technique: Multiplanar, multisequence noncontrast imaging of the cervical spine. Since the prior examination patient is status post anterior cervical fusion from C5-C7 with interbody disc spacers at C5-6 and C6-7. C4 retrolisthesis by 3 mm has slightly progressed. There is no disc contact on the cervical cord. Signal within the cervical cord is normal. Visualized posterior fossa is unremarkable. Craniocervical junction, C1 and C2 relationship, odontoid process and soft tissues are normal. C2-C3: Normal. C3-C4: Minimal facet arthritis. No significant stenosis. C4-C5: Mild annular disc bulging effacing ventral CSF. Mild bilateral facet arthritis. Mild central and bilateral foraminal narrowing predominately due to osteophyte disease. No change. C5-C6: Mild osteophytic ridging and disc bulging. Mild bilateral foraminal stenosis. C6-C7: Mild osteophytic ridging. No significant stenosis. C7-T1: Mild osteophytic ridging. No significant stenosis. Normal paravertebral soft tissues. No facet joint fluid. MR/MR cervical spin wo con* [id number] IMPRESSION: 1. Status post anterior cervical fusion from C5-C7 with interbody spacers. No complications are evident. 2. C4 retrolisthesis by 3 mm has slightly progressed since 09/04/2023. 3. No high-grade central or foraminal stenosis. 4. Mild central and bilateral foraminal stenosis predominantly due to osteophy lavell at C4-5. 5. Mild bilateral foraminal stenosis at C5-6.
== END 2024-05-11 08:26 | disposition home or self-care (01) ==
LOC: RAD 08:29
PROVIDERS: PCP Family Medicine; Visit Provider Orthopaedic Surgery
DX: M48.02 Spinal stenosis, cervical region (principal); Z98.1 Arthrodesis status; R93.7 Abnormal findings on diagnostic imaging of other parts of musculoskeletal system; M50.321 Other cervical disc degeneration at C4-C5 level; M50.322 Other cervical disc degeneration at C5-C6 level; M47.892 Other spondylosis, cervical region; M25.78 Osteophyte, vertebrae
CPT/HCPCS: 72141

== ENCOUNTER → 2024-10-24 09:45 | Outpatient (BNVA) | payer OTHER, SELFPAY | PROVIDERS: PCP Family Medicine; Visit Provider Family Medicine | DX: I10 Essential (primary) hypertension (principal); E78.00 Pure hypercholesterolemia, unspecified | CPT/HCPCS: 80053; 80061; 83036 ==

== ENCOUNTER 2025-02-06 12:31 | Emergency (ER) | payer OTHER, SELFPAY ==
[2025-02-06 12:33] VITALS: BP 164/101; PULSE 70; TEMP 36.7; O2SAT 98; BMI 26.2
--- OUTSIDE RECORDS SUMMARY | 2025-02-06 12:35 | XMS_ITS | Data Portability ---
Author Organization [place] Jose Martin [facility], [facility] Address [address] [facility] [address] [place] [address] Assessment No assessment recorded. Plan of Treatment Reminders Order Date Submit Date Provider Last Modified By Organization Details Last Modified Time Details Appointments None recorded. Lab None recorded. Referral None recorded. Procedures diagnostic colonoscopy (PROC) 2023 024 asurface Not available 10:51:29 Surgeries None recorded. Imaging None recorded. Medication Orders None recorded. Patient TargetsNo targets recorded. Patient InstructionsNo instructions recorded. Reason for Referral None Reported. Results Created Date Observation Date Name Description Value Unit Range Abnormal Flag Note LastModifiedBy Organization Detail LastModifiedTime 12/10/19 24 12/03/2023 colon oscop y proce dure (PROC ) No observ ation record ed. [email or web address] [facility] [address] , [place], [address], 12/10/2023 13:23:04 Result Notes None recorded. Problems Name Problem SNOMED Code Status Onset Date Resolution Date Notes Provider Name and Address Organization Details Recorded Time Screening for malignant neoplasm of colon Active 2023 Fco Caldera DO [address] [place], [address], [place] [facility] [place] [facility] 4 10:25:56 Spinal stenosis in cervical region 49930098 Active 2023 Fco Caldera DO [address] [place], [address], [facility] [place] [facility]iddiqui 4 15:01:26 Essential hypertension 32033598 Active 2023 Fco Caldera DO [address] [place], [address], [facility] 15:01:40 Generalized anxiety disorder 88807445 Active 2023 Fco Caldera DO [address] [place], [address], [facility] 4 15:01:41 Problem Notes None recorded. Medical Equipment None Reported. Allergies No known drug allergies Medications Name Sig Start Date Stop Date Status Note LastModified by Organization Details LastModified Time lisinopril 20 mg-hydrochl orothiazide 12.5 mg tablet TAKE 2 TABLETS BY MOUTH ONCE DAILY FOR BLOOD PRESSURE active Not Available Not Available No t Available ibuprofen 800 mg tablet TAKE 1 TABLET BY MOUTH EVERY 8 HOURS NEEDED FOR PAIN 10/13 completed Not Available Not Available Not Available doxepin 25 mg capsule 10/13 completed Not Available Not Available Not Available hydrocodone 5 mg-acetamin ophen 325 mg tablet TAKE 1 TO 2 TABLETS BY MOUTH EVERY 4 TO 6 HOURS 10/13 completed Not Available Not Available Not Available prednisone 20 mg tablet TAKE 3 TABLETS BY MOUTH ONCE DAILY FOR 5 DAYS 10/13 completed Not Available Not Available Not Available sertraline 100 mg tablet TAKE 1 & 1/2 (ONE & ONE-HALF) TABLETS BY MOUTH ONCE DAILY 10/13 completed Not Available Not Available Not Available topiramate 25 mg tablet TAKE 1 TABLET BY MOUTH TWICE DAILY 10/13 completed Not Available Not Available Not Available doxepin 10 mg capsule 10/13 completed Not Available Not Available Not Available omeprazole 40 mg capsule,del ayed release TAKE 1 CAPSULE BY MOUTH ONCE DAILY active Not Available Not Available No t Available tramadol 50 mg tablet TAKE ONE TABLET BY MOUTH EVERY 6 HOURS NEEDED FOR PAIN 10/13 completed Not Available Not Available Not Available alprazolam 0.25 mg tablet TAKE 1 TABLET BY MOUTH TWICE DAILY NEEDED active Not Available Not Available No t Available methocarbam ol 750 mg tablet TAKE 1 TABLET BY MOUTH THREE TIMES DAILY NEEDED FOR BACK PAIN 10/13 completed Not Available Not Available Not Available zolpidem 5 mg tablet TAKE 1 TABLET BY MOUTH AT BEDTIME FOR 10 DAYS 10/13 completed Not Available Not Available Not Available propranolol 20 mg tablet 10/13 completed Not Available Not Available Not Available ondansetron 4 mg disintegrat ing tablet DISSOLVE ONE TABLET ON THE TONGUE EVERY 8 HOURS NEEDED FOR NAUSEA AND VOMITING FOR THREE DAYS 10/13 completed Not Available Not Available Not Available amitriptyli ne 100 mg tablet TAKE 1 TABLET BY MOUTH EVERY DAY AT BEDTIME 10/13 completed Not Available Not Available Not Available naproxen 500 mg tablet 10/13 completed Not Available Not Available Not Available Botox 100 unit injection Inject 155 units IM-31 sites, 5 units/sit e per FDA protocol in procerus, in bilateral corrugato r, frontalis (2 sites bilateral ly),tempo ralis (4 sites bilateral ), occipital is (3 sites bilateral ), paraspino annelise cervical bilateral ly (2 injection s), trapezius (3 sites bilateral ) active Not Available Not Available No t Available atomoxetine 40 mg capsule 10/13 completed Not Available Not Available Not Available bupropion HCl XL 300 mg 24 hr tablet, extended release TAKE 1 TABLET BY MOUTH ONCE DAILY IN THE MORNING active Not Available Not Available No t Available tadalafil 5 mg tablet TAKE 1 TABLET BY MOUTH ONCE DAILY active Not Available Not Available No t Available Vitals Date Recorded Body weight Body mass index (BMI) Body height Oxygen saturation Oxygen saturation in Arterial blood by Pulse oximetry Heart rate Respiratory rate Systolic And Diastolic Provider Name and Address Organization Details Last Updated DateTime 4 [address]98 g 28.8 kg/m2 170.18 cm 98 % 98 % 94 /min 20 /min 138/90 mm[Hg] [facility] 10:11:16 Social History None recorded. Functional Status None recorded. Mental Status None recorded. Family History Nothing Reported. Medical History No medical history recorded. Immunizations Vaccine Type Date Status Note Provider Nam e and Address Organization Details Recorded Time Tdap 07/13/2012 [facility] 10:10:02 Tdap 12/19/2022 completed Yaz verdin [facility], [place] 10/14/2023 10:10:02 Past Encounters Encounter ID Performer Location Encounter Start Date Encounter Closed Date Diagnosis/Indication Diagnosis SNOMED-CT Code Diagnosis ICD10 Code Diagnosis IMO Codes Diagnosis Note [id number] Fcogage CalderaDO [facility] [address] [place] [address] 10/14/2023 09:54:28 10/14/2023 10:58:57 Screening for malignant neoplasm of colon 764926045 Z12.11 I have reviewed and discussed colon cancer screening options, including colonoscop y. Discussed risks vs benefits including risk of infection and bleeding, perforatio n, possible need for surgery, reaction to medication s, and sever injury or . We discussed pt requiring sedation and possible general anesthesia . Pt agrees to proceed with Colonoscop y at [facility]. Preliminar y procedure date will be 11/19/23. We will need to wait at least 6 weeks postop from his C-spine surgery as above. Spinal chayo nosis in cervical region 23555043 M48.02 s/p c spine suregery with Dr. Flowers. ACDF 6-7. on 10.05.23. recovering well. We will plan on holding off on screening colonoscop y until he is at least 6 weeks postop. Counseled patient. Continue care with specialist . Essential hypertension 34648277 I10 Generalize d anxiety disorder 34173446 F41.1 Health Concerns Section Related Observation LastModified by Organization Detai ls LastModified Time None Recorded Concern Status LastModified by Organization Details LastModified Time None Recorded Advance Directives Directive None Recorded Payers Insurance Date Sequence Insurance Name Policy Number Policy Mccain Covered Member ID Mccain Member ID Guarantor Name 12/21/2023 1 [facility] [id number] Jimmie Rios [id number] Jimmie Rios Notes Date Note Type Note Provider Name and Address Organization Details Recorded Time 4 text/html Colonoscopy ScreeningReported by PatientColonoscopy ScreeningFor gi symptoms, patient reportsabdominal pain,diarrhea, andconstipation. For context, patient reportsprior examinationandhistory of colon polyps. For family history, patient reportspolypsbut reportsno colon cancer(pt father had polyps). For associated symptoms, patient reportsnormal appetite,no fever,no chills,no nausea, andno vomiting.ROS as noted in the HPI The patient presents today at the request of Dr. Hunter for evaluation and discussion of colonoscopy for colon cancer screening. The patient has had recent abdominal pain, diarrhea and constipation alternating , denies bloody or dark tarry stools, or mucusy stools. Last Colon Cancer screenin-7 years ago Problems with anesthesia in the past: NONE Family History of Colon cancers: NONE Blood Thinners: NONE PMH of anxiety, HTN, GERD.s/p c spine suregery with Dr. Flowers. ACDF 6. on 10.05.23. recovering well. Co-morbidities: recent c spine surgery, HTN. Fco Caldera, DO [address] [place] [address], [phone], [facility] 10/14/2023 15:01:48
--- NOTE | 2025-02-06 12:41 | W.ED.ABDPA2 ---
HPI - Abdominal Pain General: Chief Complaint: Abdominal Pain Stated Complaint: upper abd pain, nausea Time Seen by Provider: 02/06/25 12:40 History of Present Illness: 54-year-old male presents emergency room complaining of epigastric right upper quadrant abdominal pain that is intermittent and cramping. No dysuria urgency or frequency. Has not had any vomiting or diarrhea. No previous abdominal surgeries. Associated Symptoms: Denies chills, dysuria and fever(s) Related Data Home Medications ?Medication ?Instructions ?Recorded ?Confirmed bupropion HCl 300 mg 24 hr tablet, 300 mg PO DAILY 04/10/22 01/19/25 extended release tamsulosin 0.4 mg capsule mg PO 02/01/24 01/19/25 Previous Rx's ?Medication ?Instructions ?Recorded ibuprofen 800 mg tablet 800 mg PO Q8H PRN migraine 11/23/23 headache #14 tabs diclofenac sodium 3 % topical gel 1 applic topical BID #100 grams 02/23/24 pregabalin 50 mg capsule (Lyrica) 50 mg PO TID #90 caps 03/29/24 divalproex 500 mg tablet,extended 500 mg PO DAILY #90 tabs 05/04/24 release 24 hr (Depakote ER) triamcinolone acetonide 0.1 % 1 applic topical BID dermatitis 05/09/24 topical cream #30 grams ibuprofen 800 mg tablet 800 mg PO DAILY PRN pain #40 tabs 05/10/24 ondansetron HCl 8 mg tablet 8 mg PO TID PRN nausea and 07/07/24 vomiting #30 tabs onabotulinumtoxinA 100 unit See Rx Instructions .Route 09/26/24 solution for injection (Botox) .COMPLEX #2 ea omeprazole 40 mg capsule,delayed 40 mg PO DAILY stomach #90 caps 11/14/24 release tadalafil 5 mg tablet (Cialis) 5 mg PO DAILY BPH #90 tabs 11/29/24 lisinopril 20 2 tab PO DAILY bp #90 tabs 01/23/25 mg-hydrochlorothiazide 12.5 mg tablet Allergies Allergy/AdvReac Type Severity Reaction Status Date / Time No Known Allergies Allergy Verified 02/06/25 12:37 Review of Systems Const: Denies: fever(s) or chills Card: Denies: chest pain Resp: Denies: dyspnea GI: Denies: abdominal pain : Denies: dysuria, urinary frequency or urinary urgency Musc: Denies: neck pain or back pain Skin/Breast: Denies: rash PFSH ED PFSH: Medical History Hx of coronary angiogram High cholesterol Sperm granuloma GERD (gastroesophageal reflux disease) HTN (hypertension) Surgical History History of carpal tunnel release S/P knee surgery Family History Mother , at age 51 LUNG,LIVER AND BONE CANCER Cancer Father Hypertension Cancer Other Stroke Social History Smoking and tobacco/nicotine status: unknown if used tobacco/nicotine Second hand smoke exposure: No Alcohol intake: never Substance/Drug Use: current Other substance/drug use details: GUMMIES NIGHTLY Marital status: Current occupational status: employed Physical Exam Const: COMMON NORMALS: no acute distress GENERAL APPEARANCE: cooperative and comfortable ORIENTATION/CONSCIOUSNESS: Yes awake, Yes oriented to person, Yes oriented to place and Yes oriented to time HENMT: COMMON NORMALS: normocephalic, atraumatic and hearing grossly normal bilaterally HEAD & SCALP: normocephalic and atraumatic Resp: COMMON NORMALS: normal respiratory effort, No retractions, No use of accessory muscles and clear to auscultation bilaterally AUSCULTATION: clear to auscultation bilaterally Cardio: COMMON NORMALS: regular rate, regular rhythm and No murmurs present (Cardio) RATE: regular rate RHYTHM: regular rhythm GI: COMMON NORMALS: Soft to palpation and No hepatosplenomegaly present AUSCULTATION: Yes normoactive bowel sounds PALPATION: Yes Soft to palpation, No Tenderness to palpation present (GI), No Guarding due to palpation present (GI) and Yes No hepatosplenomegaly present Extremity: COMMON NORMALS: normal to inspection, capillary refill normal, no clubbing, cyanosis or edema, no calf tenderness and no pedal edema Neuro: SENSORIUM/ORIENTATION: Yes oriented to person, Yes oriented to place and Yes oriented to time Skin: COMMON NORMALS: no rashes or lesions noted GENERAL SKIN EXAM: no rashes or lesions noted Course Vital Signs: Vital signs: Vital Signs Temperature 98.0 F 02/06/25 12:33 Pulse Rate 70 02/06/25 13:59 Respiratory Rate 18 02/06/25 12:57 Blood Pressure 140/83 02/06/25 13:59 Pulse Oximetry 98 02/06/25 13:59 Oxygen Delivery Me thod Room Air 02/06/25 12:33 MDM - Abdominal Pain Medical Decision Making Labs and imaging reviewed as found in the chart no acute leukocytosis laboratory test chemistries liver functions kidney function all normal. CT of the abdomen did not show any acute pathology. Reviewed findings with patient does have moderate amount of retained stool will discharge patient home clear liquid diet use laxatives [id number] as needed advance diet as tolerated follow-up as needed. Lab Data 02/06/25 12:50 02/06/25 12:50 Labs/Radiology: Radiology Impressions Abdomen/Pelvis CT 02/06/25 12:45 IMPRESSION: 1. No acute abdominal or pelvic abnormalities. 2. No renal obstruction. 3. Normal appendix. 4. Mild diffuse constipation. No colitis. Laboratory Results WBC 7.22 10^3/uL (3.29-11.43) 02/06/25 12:50 RBC 5.02 10^6/uL (3.85-5.65) 02/06/25 12:50 Hgb 13.90 g/dL (11.27-16.99) 02/06/25 12:50 Hct 42.2 % (37-53) 02/06/25 12:50 MCV 84.1 fl (82-101) 02/06/25 12:50 MCH 27.7 pg (27-33) 02/06/25 12:50 MCHC 32.9 g/dL (30-55) 02/06/25 12:50 RDW 12.9 % (12.1-15.1) 02/06/25 12:50 Plt Count 310 10^3/cmm (157-399) 02/06/25 12:50 MPV 9.5 fL (7.4-10.4) 02/06/25 12:50 Neut % (Auto) 69.2 % 02/06/25 12:50 Lymph % (Auto) 21.2 % 02/06/25 12:50 [place] % (Auto) 7.2 % 02/06/25 12:50 Eos % (Auto) 1.7 % 02/06/25 12:50 Baso % (Auto) 0.4 % 02/06/25 12:50 Neut # (Auto) 5.00 10^3/uL (1.8-7.7) 02/06/25 12:50 Lymph # (Auto) 1.5 10^3/uL (0.8-4.8) 02/06/25 12:50 [place] # (Auto) 0.5 10^3/uL (0.2-0.9) 02/06/25 12:50 Eos # (Auto) 0.1 10^3/uL (0.0-0.8) 02/06/25 12:50 Baso # (Auto) 0.0 10^3/uL (0.0-0.1) 02/06/25 12:50 Nucleated RBC % (auto) 0 % 02/06/25 12:50 Nucleated RBCs # 0.0 /100WBC 02/06/25 12:50 Sodium 138 mmol/L (136-145) 02/06/25 12:50 Potassium 3.8 mmol/L (3.5-5.1) 02/06/25 12:50 Chloride 99 mmol/L (98-107) 02/06/25 12:50 Carbon Dioxide 26 mmol/L (22-29) 02/06/25 12:50 Anion Gap 16.8 (5-19) 02/06/25 12:50 BUN 7 mg/dL (6-20) 02/06/25 12:50 Creatinine 0.6 mg/dL (0.7-1.2) L 02/06/25 12:50 GFR Calculation 139.4 mL/min (90-130) H 02/06/25 12:50 Glucose 92 mg/dL (65-115) 02/06/25 12:50 Calculated Osmolality 284 mOsm/kg (285-295) L 02/06/25 12:50 Calcium 9.7 mg/dL (8.5-10.5) 02/06/25 12:50 Total Bilirubin 0.4 mg/dL (0.15-1.2) 02/06/25 12:50 AST 17 U/L (0-40) 02/06/25 12:50 ALT 12 U/L (0-41) 02/06/25 12:50 Alkaline Phosphatase 59 U/L (40-130) 02/06/25 12:50 Total Protein 7.6 g/dL (6.6-8.7) 02/06/25 12:50 Albumin 4.7 g/dL (3.5-5.2) 02/06/25 12:50 Globulin 2.9 g/dL (1.3-4.6) 02/06/25 12:50 Lipase 32 U/L (13-60) 02/06/25 12:50 Urine Color Yellow (Yellow) 02/06/25 12:43 Urine Appearance Clear (CLEAR) 02/06/25 12:43 Urine pH 6.5 (5-7) 02/06/25 12:43 Ur Specific [place] 1.010 (1.005-1.030) 02/06/25 12:43 Urine Protein Negative (Negative) 02/06/25 12:43 Urine Glucose (UA) Negative (Normal) 02/06/25 12:43 Urine Ketones Negative (Negative) 02/06/25 12:43 Urine Blood Negative (Negative) 02/06/25 12:43 Urine Nitrate Negative (Negative) 02/06/25 12:43 Urine Bilirubin Negative (Negative) 02/06/25 12:43 Urine Urobilinogen 1.0 mg/dL (Negative) 02/06/25 12:43 Ur Leukocyte Esterase Negative (Negative) 02/06/25 12:43 Urine RBC 0-2 /hpf (0-2) 02/06/25 12:43 Urine WBC 0-5 /hpf (0-5) 02/06/25 12:43 Ur Squamous Epith Cells 0-5 /hpf (0-5) 02/06/25 12:43 Amorphous Sediment Not Reportable 02/06/25 12:43 Urine Bacteria None seen /hpf (NONE) 02/06/25 12:43 Hyaline Casts 0-4 /lpf H 02/06/25 12:43 All radiology interpretation(s) finalized by discharge Discharge Plan Discharge Patient Disposition: Home Clinical Impression: Abdominal pain, Constipation Condition: Stable Prescriptions: No Action ibuprofen 800 mg tablet 800 mg PO Q8H PRN (Reason: migraine headache) Qty: 14 0RF triamcinolone acetonide 0.1 % cream 1 applic topical BID Qty: 30 2RF Rx Instructions: use for two weeks at a time. tamsulosin 0.4 mg capsule PO diclofenac sodium 3 % gel 1 applic topical BID Qty: 100 2RF pregabalin [Lyrica] 50 mg capsule 50 mg PO TID Qty: 90 0RF ondansetron HCl 8 mg tablet 8 mg PO TID PRN (Reason: nausea and vomiting) Qty: 30 0RF Rx Instructions: may take one every 6 hours bupropion HCl 300 mg tablet extended release 24 hr 300 mg PO DAILY ibuprofen 800 mg tablet 800 mg PO DAILY PRN (Reason: pain) Qty: 40 0RF Rx Instructions: Do not use every day. divalproex [Depakote ER] 500 mg tablet extended release 24 hr 500 mg PO DAILY Qty: 90 0RF Botox 100 unit recon soln See Rx Instructions .ROUTE .COMPLEX Qty: 2 3RF Dose Instruction: Inject 155 units IM-31 sites, 5 units/site per FDA protocol: in procerus, in bilateral lockstitcher, frontalis (2 sites bilaterally),temporalis (4 sites bilateral), occipitalis (3 sites bilateral), paraspinosus cervical bilaterally (2 injections), trapezius (3 sites bilateral) Rx Instructions: Inject 155 units IM-31 sites, 5 units/site per FDA protocol: in procerus, in bilateral lockstitcher, frontalis (2 sites bilaterally),temporalis (4 sites bilateral), occipitalis (3 sites bilateral), paraspinosus cervical bilaterally (2 injections), trapezius (3 sites bilateral) omeprazole 40 mg capsule,delayed release(DR/EC) 40 mg PO DAILY Qty: 90 3RF tadalafil [Cialis] 5 mg tablet 5 mg PO DAILY Qty: 90 3RF lisinopril-hydrochlorothiazide 20-12.5 mg tablet 2 tab PO DAILY Qty: 90 3RF Discharge Orders: Discharge ED (Routine); Ordered 02/06/25 Ordered By: Jimmie Hurd Referrals: Taran Hunter DO [Primary Care Provider, Family Practice] Discharge Diet: Clear Liquid Discharge Activity: Increase activity as tolerated Patient Instructions: Abdominal Pain (ED), Opioid Safety, Pain Management, Patient Portal & [place] Instructions Activity Restrictions/Additional Instructions: Thank you for choosing [facility]. It is very important that you follow up as instructed or that you return to the Emergency Department should you have concerns or if your condition changes or worsens in any way. Emergency department visits are focused on emergent conditions, in some cases you may require further evaluation on an outpatient basis. You are seen emergency room with complaints of abdominal pain. CT of your abdomen did not show any acute pathology. White count was normal liver enzymes pancreas enzymes kidney and electrolytes were all normal as well. Recommend clear liquid diet for next 1 to 2 days and advance as tolerated. He did have a fair amount of constipation on the CT you can try some laxatives to try to relieve your symptoms. (Please note that included in your discharge packet is information concerning opioid safety and pain management. This information is given to all patients were discharged from the ER regardless of their discharge diagnosis or the medicines they usually take or are prescribed.) Print Language: Citizen [place] Coding Level of Care Code ED Business Technology Architect for Maria Del Carmen Koch
--- NOTE | 2025-02-06 12:45 | CT_ITS ---
WS: [id number] CT ABDOMEN AND PELVIS NONCONTRAST HISTORY: Abdominal pain TECHNIQUE: Imaging performed through the abdomen and pelvis. Coronal and sagittal reformats are submitted. All CT scans at [facility] use at least one of these dose optimization techniques: automated exposure control; mA and/or kV adjustment per patient size (includes targeted exams where dose is matched to clinical indication); or iterative reconstruction. DLP: 540.83 mGy.cm COMPARISON: 07/24/2017 Lower thorax: Lung bases are clear. Visualized heart is normal. No hiatal hernia. Liver: Normal size liver. No mass or bile duct dilatation. Gallbladder: Normal gallbladder. No pericholecystic fluid or cholelithiasis. No gallbladder wall thickening. Pancreas: Normal size and attenuation. Normal pancreatic duct. No pancreatitis or mass. Spleen: Normal. Adrenal glands: Normal. No mass. Right kidney: Normal size kidney with no mass or hydronephrosis. Left kidney: Normal size kidney. Low-attenuation 2.0 cm cyst upper pole LEFT kidney. No obstruction. Aorta: Normal abdominal aorta, no aneurysm or atherosclerosis. No free fluid, intraperitoneal air or significant lymphadenopathy. GI tract: No GI tract obstruction. Mild constipation. Normal appendix. No evidence for colitis. Abdominal wall: Negative. No hernia. Pelvis: No free fluid or adenopathy. Normal urinary bladder. Osseous structures: Unremarkable. CT/CT abdomen pelvis wo con [id number] IMPRESSION: 1. No acute abdominal or pelvic abnormalities. 2. No renal obstruction. 3. Normal appendix. 4. Mild diffuse constipation. No colitis.
[2025-02-06 12:57] VITALS: RESP 18; O2SAT 99
[2025-02-06 12:57] LABS: Glucose Urine UA Negative (Normal); Nitrate Urine Negative (Negative); Specific Gravity, Urine 1.010 (1.005-1.030)
[2025-02-06 12:57] LABS: Hematocrit 42.2 % (37-53); Hemoglobin 13.90 g/dL (11.27-16.99); Mean Corpuscular HGB Conc 32.9 g/dL (30-55); Mean Corpuscular Hemoglobin 27.7 pg (27-33); Mean Corpuscular Volume 84.1 fl (82-101); Nucleated Red Blood Cells % 0 %; Platelet Count 310 10^3/cmm (157-399); Red Blood Count 5.02 10^6/uL (3.85-5.65); White Blood Count 7.22 10^3/uL (3.29-11.43)
[2025-02-06] MEDS: morphine 4 mg/mL SDV 1 mL IVP (12:57)
[2025-02-06] MEDS: ondansetron 2 mg/ML SDV 2 mL 4 MG IVP (12:57)
[2025-02-06 13:02] LABS: Add Urine Microscopic? YES
[2025-02-06 13:19] LABS: Alanine Aminotransferase 12 U/L (0-41); Albumin Level 4.7 g/dL (3.5-5.2); Alkaline Phosphatase 59 U/L (40-130); Anion Gap 16.8 (5-19); Aspartate Amino Transferase 17 U/L (0-40); Blood Urea Nitrogen 7 mg/dL (6-20); Calcium 9.7 mg/dL (8.5-10.5); Carbon Dioxide 26 mmol/L (22-29); Chloride 99 mmol/L (98-107); Creatinine Clr Calc Pharmacy 136.0333; Globulin 2.9 g/dL (1.3-4.6); Glucose 92 mg/dL (65-115); Lipase 32 U/L (13-60); Osmolality Calculated 284 mOsm/kg (285-295); Potassium 3.8 mmol/L (3.5-5.1); Sodium 138 mmol/L (136-145); Total Protein 7.6 g/dL (6.6-8.7)
--- NOTE | 2025-02-06 13:36 | PC.PHAR ---
pt is [facility] med list 02/06/25 1:35ppm
[2025-02-06 13:59] VITALS: BP 140/83; PULSE 70; O2SAT 98
== END 2025-02-06 14:04 | disposition home or self-care (01) ==
PROVIDERS: Emergency Provider Family Medicine; PCP Family Medicine
DX: R10.9 Unspecified abdominal pain (principal); K59.00 Constipation, unspecified; I10 Essential (primary) hypertension
CPT/HCPCS: 74176; 80053; 81001; 83690; 85025; 96374; 96375; 99285; J2270; J2405; J7030

== ENCOUNTER 2025-03-14 14:18 | Outpatient (CLI) | payer OTHER, SELFPAY | END 2025-03-14 14:19 | disposition home or self-care (01) | LOC: SLEEP 14:20 | PROVIDERS: PCP Family Medicine; Referring Provider Nurse Practitioner Family; Visit Provider Internal Medicine Pulmonary Disease | DX: G47.33 Obstructive sleep apnea (adult) (pediatric) (principal) | CPT/HCPCS: G0399 ==